=== PATIENT | male | born 1945 ===

== ENCOUNTER 2020-07-23 11:51 | Outpatient (REF) | payer OTHER, MEDICAID, SELFPAY ==
[2020-07-23 13:49] LABS: Prostate Specific Antigen < 0.05 ng/mL (<0.05-4.0)
== END 2020-07-23 11:52 | disposition home or self-care (01) ==
LOC: HO.LAB 11:51
PROVIDERS: PCP Student in an Organized Health Care Education/Training Program; Visit Provider Urology
DX: C61 Malignant neoplasm of prostate (principal); Z12.5 Encounter for screening for malignant neoplasm of prostate
CPT/HCPCS: 84153

== ENCOUNTER 2020-10-05 12:00 | Outpatient (REF) | payer OTHER, SELFPAY ==
[2020-10-05 13:36] LABS: Prostate Specific Antigen < 0.05 ng/mL (<0.05-4.0)
== END 2020-10-05 12:01 | disposition home or self-care (01) ==
LOC: HO.LAB 12:00
PROVIDERS: PCP Student in an Organized Health Care Education/Training Program; Visit Provider Urology
DX: Z85.46 Personal history of malignant neoplasm of prostate (principal); Z12.5 Encounter for screening for malignant neoplasm of prostate
CPT/HCPCS: 36415; 84153

== ENCOUNTER → 2020-10-12 13:13 | Outpatient (BNVA) | payer OTHER, SELFPAY | PROVIDERS: PCP Student in an Organized Health Care Education/Training Program; Referring Provider Student in an Organized Health Care Education/Training Program; Visit Provider Urology | DX: C61 Malignant neoplasm of prostate (principal); R97.20 Elevated prostate specific antigen [PSA] | CPT/HCPCS: 96402; 99212; J9217 ==

== ENCOUNTER → 2020-12-01 13:24 | Outpatient (BNVA) | payer OTHER, SELFPAY | PROVIDERS: PCP Student in an Organized Health Care Education/Training Program; Visit Provider Urology | DX: Z13.89 Encounter for screening for other disorder (principal) | CPT/HCPCS: Q3014 ==

== ENCOUNTER 2020-12-21 11:29 | Outpatient (REF) | payer OTHER, SELFPAY ==
[2020-12-21 11:37] VITALS: BP 148/81; PULSE 72; RESP 16; TEMP 36.4; O2SAT 98
[2020-12-21 12:05] VITALS: BMI 45.5
--- NOTE | 2020-12-21 12:54 | MHC.SHP ---
Pre-Procedural Eval Section A The patient is an INPATIENT: No Changes since office visit: No Cold of Flu in the past 2 weeks, No New Medical Problems, No Changes in Medication and No Patient answered all questions The History & Physical has been completed within 30 days and I have reviewed it.: Yes Section B Chief Complaint: prostate ca Allergies: Allergies Allergy/AdvReac Type Severity Reaction Status Date / Time No Known Allergies Allergy Unverified 12/01/20 13:28 [No Known Allergies*] Plan Diagnosis/Plan: Unchanged (PnBx) I have reviewed the history and physical and performed a pertinent physical examination on my patient. No changes have occurred unless specified.
--- NOTE | 2020-12-21 12:55 | W.PM.OPN ---
Operative Note Operative Note Date of Service: 12/21/20 Narrative: Preoperative diagnosis: Elevated PSA Postoperative diagnosis: Elevated PSA Procedure: 1. transrectal ultrasound measurement of prostate 2. transrectal ultrasound-guided pudendal nerve block 3. transrectal ultrasound-guided prostate biopsy 12 core Surgeon: Dr. Pedro Buckley Anesthetic: Local Indications for procedure: Elevated PSA Procedure: After informed consent was verified, the patient was brought into the procedure area and lay left-hand side down on the table. Patient identity confirmed. Perioperative antibiotics confirmed. Gel was placed per rectum Ultrasound probe was placed per rectum The prostate was measured in 3 dimensions Total volume equals 35 gm There were no cystic structures and no calcifications noted and the prostate was homogeneous in nature A ultrasound-guided pudendal nerve block was performed using 10 cc of 1% lidocaine. 8 cc was placed at the base and 2 cc of the apex. A 12 core biopsy was performed with 6 cores each side. Two cores were taken at the apex, mid and base. Cores were spaced between lateral and medial. He tolerated the procedure well. Was able to ambulate to bathroom after 5 minutes. Printed instructions regarding antibiotic use and common side effects such as low-grade temperature and bleeding were given.
[2020-12-21 12:57] VITALS: BP 142/75; PULSE 65; RESP 16; O2SAT 99
== END 2020-12-21 11:30 | disposition home or self-care (01) ==
LOC: HO.MS 11:29
PROVIDERS: PCP Student in an Organized Health Care Education/Training Program; Visit Provider Urology
PROC: (CPT 55700; principal; 2020-12-21 12:00)
DX: C61 Malignant neoplasm of prostate (principal); N40.1 Benign prostatic hyperplasia with lower urinary tract symptoms; R97.20 Elevated prostate specific antigen [PSA]
CPT/HCPCS: 55700; 76942; 88305; 88344

== ENCOUNTER 2020-12-29 11:13 | Outpatient (REF) | payer OTHER, SELFPAY ==
[2020-12-29 17:47] LABS: Prostate Specific Antigen < 0.05 ng/mL (<0.05-4.0)
== END 2020-12-29 11:14 | disposition home or self-care (01) ==
LOC: HO.LAB 11:13
PROVIDERS: PCP Student in an Organized Health Care Education/Training Program; Visit Provider Urology
DX: Z12.5 Encounter for screening for malignant neoplasm of prostate (principal); C61 Malignant neoplasm of prostate
CPT/HCPCS: 36415; 84153

== ENCOUNTER → 2020-12-30 10:44 | Outpatient (BNVA) | payer OTHER, SELFPAY | PROVIDERS: PCP Student in an Organized Health Care Education/Training Program; Visit Provider Urology | DX: C61 Malignant neoplasm of prostate (principal) | CPT/HCPCS: 99212 ==

== ENCOUNTER 2021-04-22 10:14 | Outpatient (REF) | payer OTHER, SELFPAY ==
[2021-04-22 11:38] LABS: Prostate Specific Antigen < 0.05 ng/mL (<0.05-4.0)
== END 2021-04-22 10:15 | disposition home or self-care (01) ==
LOC: HO.LAB 10:14
PROVIDERS: PCP Student in an Organized Health Care Education/Training Program; Visit Provider Urology
DX: Z12.5 Encounter for screening for malignant neoplasm of prostate (principal); C61 Malignant neoplasm of prostate
CPT/HCPCS: 36415; 84153

== ENCOUNTER → 2021-05-03 08:55 | Outpatient (BNVA) | payer OTHER, SELFPAY | PROVIDERS: PCP Student in an Organized Health Care Education/Training Program; Visit Provider Urology | DX: C61 Malignant neoplasm of prostate (principal); N52.9 Male erectile dysfunction, unspecified | CPT/HCPCS: 99212 ==

== ENCOUNTER 2021-09-27 11:08 | Outpatient (REF) | payer OTHER, SELFPAY ==
[2021-09-27 13:01] LABS: Prostate Specific Antigen 7.56 ng/mL (<0.05-4.0)
== END 2021-09-27 11:09 | disposition home or self-care (01) ==
LOC: HO.LAB 11:08
PROVIDERS: PCP Student in an Organized Health Care Education/Training Program; Visit Provider Urology
DX: C61 Malignant neoplasm of prostate (principal)
CPT/HCPCS: 36415; 84153

== ENCOUNTER → 2021-10-19 14:22 | Outpatient (BNVA) | payer OTHER, SELFPAY | PROVIDERS: PCP Student in an Organized Health Care Education/Training Program; Visit Provider Urology | DX: Z13.89 Encounter for screening for other disorder (principal) | CPT/HCPCS: Q3014 ==

== ENCOUNTER → 2022-10-31 11:22 | Outpatient (BNVA) | payer OTHER, SELFPAY | PROVIDERS: PCP Student in an Organized Health Care Education/Training Program; Visit Provider Urology | DX: C61 Malignant neoplasm of prostate (principal); N52.9 Male erectile dysfunction, unspecified | CPT/HCPCS: 99212 ==

== ENCOUNTER → 2023-02-06 09:59 | Outpatient (BNVA) | payer OTHER, SELFPAY | PROVIDERS: PCP Student in an Organized Health Care Education/Training Program; Visit Provider Urology | DX: C61 Malignant neoplasm of prostate (principal) | CPT/HCPCS: Q3014 ==

== ENCOUNTER → 2023-05-01 11:33 | Outpatient (BNVA) | payer OTHER, SELFPAY | PROVIDERS: PCP Student in an Organized Health Care Education/Training Program; Visit Provider Urology ==

== ENCOUNTER 2023-08-03 13:06 | Outpatient (AMB) | payer OTHER, SELFPAY ==
--- NOTE | 2023-08-03 13:14 | MHC.OFFVIS ---
Intake Intake Visit Reasons: Targeted bx consult Intake Note: Patient is Present for Follow Up H&P Urology Medication: Finasteride, Tadalafil Antibiotic Allergies: None Blood Thinners: None Allergies No Known Allergies [No Known Allergies*] Allergy (Verified 08/03/23 13:24) Medication List - Last Reconciled 08/03/23 by Pedro Buckley MD albuterol sulfate 90 mcg/actuation 1 puff inhalation Q4H PRN finasteride 5 mg PO DAILY 90 days hydrochlorothiazide 25 mg PO DAILY montelukast 10 mg PO QAM omeprazole 20 mg PO DAILY tadalafil 5 mg PO DAILY PRN 90 days HPI HPI Comments History of Present Illness Details Fabien is at a pleasant male. He is a patient of Dr. Bolton. He is seen for the following urologic conditions - prostate cancer Sami translation provided in office by qualified biomedical specialist MRI has been obtained Lesion at right base of prostate Plan for targeted biopsy Remains on finasteride Repeat PSA Refill PD 5 Prostate cancer September 2018 low volume, repeat biopsy 12/12 Negative Prostate cancer diagnosed September 2018 Initial PSA diagnosis 04 October 2018 Prostate biopsy 1 core out of 12 [place] 4 + 4 10% Imaging - bone scan negative September 2018 PSA - 10/13 11, 01/12 <0.1, 04/13 <0.1, 10/15 7.6, 10/16 14.3 Initial therapy GnRH with finasteride and bicalutamide - Last GnRH 10/12/20 Had planned on radiation therapy Repeat prostate biopsy organized November 2020 repeat prostate biopsy no prostate cancer seen Imaging - 12/14 MRI right base PI-RADS 3 lesion Erectile dysfunction Continued effective response to daily tadalafil PFSH Medical History GERD (gastroesophageal reflux disease) Prostate cancer Elevated PSA PIN (prostatic intraepithelial neoplasia) Enlarged prostate with lower urinary tract symptoms (LUTS) Surgical History Hx of prostate biopsy Social History Patient Tobacco Use Status: Tobacco use Unknown Review of Systems Const Denies chills and Denies fever(s) Card Reports no additional complaints and Denies syncope Resp Denies cough GI Denies abdominal pain and Denies heartburn Reports as per HPI and Denies change in libido Neuro Denies syncope Psych Denies change in libido Endo Denies change in libido Physical Exam Const General: cooperative, healthy appearing, comfortable and no acute distress Orientation/consciousness: patient oriented x3 HEENT Face and sinus: Yes normal facial exam Mouth: moist mucous membranes Neck Neck: Yes normal visual inspection, Yes full ROM and Yes trachea midline Chest Chest palpation & inspection: normal inspection of the chest Resp Effort & Inspection: normal respiratory effort, able to speak in complete sentences and no respiratory distress GI Inspection: Yes normal to inspection Back/Spine/Pelvis Cervical Spine: normal cervical lordosis Thoracic/Lumbar Spine: thoracic and lumbar spine normal to inspection Skin General skin exam: no rashes or lesions noted Neuro General: patient oriented x3, gait normal, tone normal and moves all extremities Extrem General: Yes normal to inspection and Yes capillary refill normal Assessment & Plan Assessment & Plan (1) Prostate cancer: Code(s): C61 - Malignant neoplasm of prostate (2) Erectile dysfunction: Code(s): N52.9 - Male erectile dysfunction, unspecified Plan Risks, benefits and alternatives to therapy were discussed. These include but are not limited to infection, bleeding, damage to local organs and tissues, need for further interventions. Anesthetic risks regarding cardiac arrhythmia, blood clots, and potential mortality were discussed. The patient understands the typical recovery time and the outpatient nature of the procedure. After consideration of these risks the patient gives full informed consent and they wish to move ahead with the procedure. Targeted prostate biopsy Orders: Orders Prostate Specific Antigen Today C61 - Malignant neoplasm of prostate, E11.69 - Type 2 diabetes mellitus with other specified complication, N52.1 - Erectile dysfunction due to diseases classified elsewhere Medications: Refilled tadalafil 5 mg PO DAILY 90 days PRN 90 tabs 1RF sexual activity N52.9 - Male erectile dysfunction, unspecified Patient Instructions: Imaging studies, laboratory and physical exam results were discussed and reviewed in detail. No major barriers to patient understanding were identified. An opportunity to ask questions regarding the treatment plan was provided. All questions were answered. The patient expressed understanding and agreement with the above treatment plan. The patient is aware they should contact our office by phone for worsening of their current condition or the appearance of new urologic symptoms. Compliance is encouraged with any medications and followup testing that is ordered. It is a privilege to participate in the urologic care of your patient. If you have any questions or concerns regarding treatment for the above conditions, or other urologic issues, please do not hesitate to contact me. The office telephone contact is [phone]. This note is constructed using voice recognition software. While every effort has been made to ensure accuracy patient account analyst errors may have been included. Yours sincerely, Dr Pedro Buckley MD, [facility] - Urology Providers of Expert, Compassionate Care for the Genitourinary System Coding Level of Care Code Est Pt Level 4 (35094) Diagnoses Prostate cancer C61 Erectile dysfunction N52.9
== END 2023-08-03 13:46 | disposition home or self-care (01) ==
LOC: HO.HUSH 13:06
PROVIDERS: PCP Student in an Organized Health Care Education/Training Program; Visit Provider Urology
DX: C61 Malignant neoplasm of prostate (principal); N52.9 Male erectile dysfunction, unspecified
CPT/HCPCS: 99214

== ENCOUNTER → 2023-08-03 13:06 | Outpatient (BNVA) | payer OTHER, SELFPAY | PROVIDERS: PCP Student in an Organized Health Care Education/Training Program; Visit Provider Urology | DX: C61 Malignant neoplasm of prostate (principal); N52.9 Male erectile dysfunction, unspecified | CPT/HCPCS: 99212 ==

== ENCOUNTER 2023-10-15 08:20 | Day surgery (SDC) | payer OTHER, SELFPAY ==
[2023-10-11 09:40] VITALS: BMI 23.4
--- NOTE | 2023-10-12 10:50 | HO.ANESPROP2 ---
Documented by User: Maricruz Fabian NP 10/12/23 10:52 HPI - Anesthesia Eval Consult details Narrative: 78yo M for Targeted Prostate Needle Biopsy Productive cough at 09/25/23 PCP visit. Mucinex and certrizine rx'd. No abx. PMFSH Active Problems Active Problems: All Active Problems (Updated 08/08/21 @ 12:03 by Demetrice Oliva RN) Erectile dysfunction (Acute) Prostate cancer (Acute) Past Medical History Medical History Asthma HTN (hypertension) GERD (gastroesophageal reflux disease) Prostate cancer Elevated PSA PIN (prostatic intraepithelial neoplasia) Enlarged prostate with lower urinary tract symptoms (LUTS) Surgical History Surgical History Hx of prostate biopsy Social History Social History Patient Tobacco Use Status: Tobacco use Unknown Are you DNR?: No Advance Directives: No Advance Directives Information Provided: Yes Recently lost weight without trying: No Nutrition Risks: No Nutritional Risk Meds Allergies Allergy/AdvReac Type Severity Reaction Status Date / Time No Known Allergies Allergy Verified 08/03/23 13:24 [No Known Allergies*] Home Medications Medication Instructions Recorded Confirmed Last Taken Type albuterol sulfate 90 mcg/actuation 1 puff inhalation Q4H PRN Wheezing 12/01/20 10/11/23 Unknown History aerosol inhaler hydrochlorothiazide 25 mg tablet 25 mg PO DAILY 12/01/20 10/11/23 Unknown History omeprazole 20 mg capsule,delayed 20 mg PO DAILY 12/01/20 10/11/23 Unknown History release montelukast 10 mg tablet 10 mg PO QAM 02/06/23 10/11/23 Unknown History fluticasone propionate 115 2 puff inhalation BID 10/11/23 10/11/23 Unknown History mcg-salmeterol 21 mcg/actuation HFA inhaler (Advair HFA) Exam Height,Weight and Vital Signs: Height 5 ft 6.5 in Weight 66.678 kg Assessment and Plan Assessment Anesthesia Assessment: Chart Reviewed Documented by User: Mazrena Garner MD 10/15/23 10:05 [facility] Active Problems Active Problems: All Active Problems (Updated 10/15/23 @ 09:19 by Marzena Garner MD) Erectile dysfunction (Acute) Prostate cancer (Acute) HTN. On ?lisinopril 5mg. Only uses sometimes. Does not think he needs. Also HCTZ Asthma/COPD Uses inhaler daily Past Medical History Medical History Asthma HTN (hypertension) GERD (gastroesophageal reflux disease) Prostate cancer Elevated PSA PIN (prostatic intraepithelial neoplasia) Enlarged prostate with lower urinary tract symptoms (LUTS) Family History Family history of problems with anesthesia: No Surgical History Surgical History Hx of prostate biopsy History of Problems with Anesthesia: No Social History Social History Patient Tobacco Use Status: Tobacco use Unknown Are you DNR?: No Advance Directives: No Advance Directives Information Provided: Yes Recently lost weight without trying: No Nutrition Risks: No Nutritional Risk Meds Allergies Allergy/AdvReac Type Severity Reaction Status Date / Time No Known Allergies Allergy Verified 08/03/23 13:24 [No Known Allergies*] Home Medications Medication Instructions Recorded Confirmed Last Taken Type albuterol sulfate 90 mcg/actuation 1 puff inhalation Q4H PRN Wheezing 12/01/20 10/11/23 Unknown History aerosol inhaler hydrochlorothiazide 25 mg tablet 25 mg PO DAILY 12/01/20 10/11/23 Unknown History omeprazole 20 mg capsule,delayed 20 mg PO DAILY 12/01/20 10/11/23 Unknown History release montelukast 10 mg tablet 10 mg PO QAM 02/06/23 10/11/23 Unknown History fluticasone propionate 115 2 puff inhalation BID 10/11/23 10/11/23 Unknown History mcg-salmeterol 21 mcg/actuation HFA inhaler (Advair HFA) Exam Height,Weight and Vital Signs: Height 5 ft 6.5 in Weight 66.678 kg Vital Signs Temp Pulse Resp BP Pulse Ox O2 Del Method 10/15/23 08:28 97 F 70 20 152/72 H 97 Room Air Narrative Narrative: 12 lead EKG 10/15/23: SB 52 with PACs with aberrant conduction Airway Mallampati Class: II TM Dist: >3cm Neck ROM: Full Denture: Upper and Lower Loose/Missing/Broken Teeth: Yes (Full Dentures) Heart: Irregular Lungs: CTAB Other: Will check EKG Assessment and Plan Assessment Anesthesia Assessment: Anesthesia Plan Discussed Final Anesthetic Review Family History of Problems with Anesthesia: No History of Problems with Anesthesia: No NPO: Yes ASA Class: III Final Preanesthetic Review: No Changes in Pt Med Stat, Meds/Allgs Chart Reviewed, Consent Obtained/Reviewed and Anes Risks/Benef Reviewed Patient Risk: Intermediate Procedure Risk: Low Assessment/Block/Sedation in SS: Assess/Block/Sedation-SS Anesthetic Plan Anesthetic Plan: GA and TIVA Disposition: Standard PACU
[2023-10-15 08:28] VITALS: BP 152/72; PULSE 70; RESP 20; TEMP 36.1; O2SAT 97
[2023-10-15 08:30] VITALS: BMI 23.5
[2023-10-15] MEDS: Lactated Ringers 1,000 ML 100 ML IVCONT (08:40)
[2023-10-15] MEDS: levoFLOXacin 500 MG TABLET PO (08:40)
--- NOTE | 2023-10-15 09:43 | ECG_ITS ---
Test Reason : PRE OP Blood Pressure : / mmHG Vent. Rate : 052 BPM Atrial Rate : 052 BPM P-R Int : 132 ms QRS Dur : 088 ms QT Int : 400 ms P-R-T Axes : 000 014 043 degrees QTc Int : 372 ms Sinus bradycardia with Premature atrial complexes with Aberrant conduction Otherwise normal ECG When compared to the previous EKG of sinus bradycardia present Referred By: Marzena Garner Electronically Signed By:Gómez Garnica
--- NOTE | 2023-10-15 10:20 | MHC.SHP ---
Pre-Procedural Eval Section A Date of Service: 10/15/23 The patient is an INPATIENT: No The History & Physical has been completed within 30 days and I have reviewed it.: No Section B Chief Complaint: Malignant neoplasm of prostate Relevant Family History (Specify if Yes): No Relevant Social History: None Present Medications: see Short Stay Collaborative assessment Medical History: No relevant PMH History of Previous Operations: Relevant previous surgery/procedure and date(s) Allergies: Allergies Allergy/AdvReac Type Severity Reaction Status Date / Time No Known Allergies Allergy Verified 08/03/23 13:24 [No Known Allergies*] Review of Systems Sugical H&P ROS: Negative: Constitution, Cardiovascular, Respiratory, Neurological, Psychiatric, Hem-Onc, Allergic/Immunologic, Gastrointestinal, Genitourinary, Musculoskeletal, Integumentary, Endocrine and Eyes/Ears/Nose/Throat Exam Surgical H&P Exam: Normal: HEENT, Normal: Heart, Normal: Lungs, Normal: Extremities, Normal: Abdomen, Normal: Skin and Normal: Neurological Plan Diagnosis/Plan: Unchanged (targeted prostate biopsy) I have reviewed the history and physical and performed a pertinent physical examination on my patient. No changes have occurred unless specified. Time Spent With Patient Time: Total time managing care of this patient today ____ minutes.
--- NOTE | 2023-10-15 10:34 | PC.NURSE ---
dr lackey at bedside with interpretor pt refusing to take dentures off eveyone aware
--- NOTE | 2023-10-15 11:19 | P.OP_ITS ---
Operative Note Operative Note Date of Service: 10/15/23 Narrative: Preoperative diagnosis: Prostate Cancer Postoperative diagnosis: Prostate Cancer Procedure: 1. transrectal ultrasound-guided pudendal nerve block 2. MRI-US fusion image registration performed 3. transperineal ultrasound-guided prostate biopsy 18 core including targets Surgeon: Dr. Pedro Buckley Anesthetic: Sedation plus local Indications for procedure: Prostate Cancer Procedure: After informed consent was verified, the patient was brought into the procedure area. Patient identity confirmed. Perioperative antibiotics confirmed. Safety pause time out performed. Anesthesia performed per protocol. Scrotum taped out of operative area. Iodine prep used. Perineal injection of local anesthetic. Digital guided prostate pudendal nerve block performed with 10 cc of 1% lidocaine. 5cc each side. Combination 10cc iodine with 50cc gel was mixed and placed in the rectum. Ultrasound probe was placed per rectum. Ultrasound probe stabilized on a prostate stepper with attached grid. [employer] software and hardware platform used for US image acquisition, US 3D model creation and MRI-US fusion image overlay. Ultrasound placement was made with external grid calibration for height and prostate diameter in both the transverse and longitudinal planes. Grid A-C covering right prostate and c-F covering left prostate. Numbers 1.0-2.5 covering posterior prostate and 2.5-4.0 covering anterior prostate. Once grid calibration was confirmed prostate ultrasound data acquisition was performed in the transverse fashion. The US images were registered to create model boundaries. A three dimensional ultrasound model was created using [employer] software. The model was reviewed against acquired US images. The planned needle targeting, based on prior acquisition of MRI imaging, was overlaid on the ultrasound images and targets confirmed through ultrasound r eview. Adjustments were then made between real time and projected model targeting locations. Based on pre-planning evaluation 18 targets had been identified. These included 3 targets of the PI-RADS 4 prostate right base PZ identified lesion/s. He tolerated the procedure well. Was transferred to stable condition in the PACU. Printed instructions regarding antibiotic use and common side effects such as low-grade temperature, potential infection and bleeding were given Pathology: 18 core prostate biopsy CPT 01508 Modifier 22 for complexity of procedure execution (Perineal prostate biopsy) CPT 35151 US/MRI target fusion and manipulation in realtime
[2023-10-15 11:27] VITALS: BP 111/67; PULSE 70; RESP 19; TEMP 36.4; O2SAT 94
[2023-10-15 11:30] VITALS: BP 105/60; PULSE 73; RESP 19; O2SAT 95
[2023-10-15 11:35] VITALS: BP 136/71; PULSE 64; RESP 16; O2SAT 97
[2023-10-15 11:40] VITALS: BP 144/71; PULSE 71; RESP 17; O2SAT 97
[2023-10-15 11:55] VITALS: BP 120/68; PULSE 64; RESP 16; TEMP 36.3; O2SAT 97
== END 2023-10-15 12:59 | disposition home or self-care (01) ==
PROVIDERS: PCP Student in an Organized Health Care Education/Training Program; Visit Provider Urology
PROC: (CPT 55700; principal; 2023-10-15 09:50)
DX: C61 Malignant neoplasm of prostate (principal); I10 Essential (primary) hypertension; K21.9 Gastro-esophageal reflux disease without esophagitis
CPT/HCPCS: 55706; 88305; 88344; 93005; J2704; J3010

== ENCOUNTER → 2023-10-15 08:20 | Outpatient (BNV) | payer OTHER, SELFPAY | PROVIDERS: PCP Student in an Organized Health Care Education/Training Program; Visit Provider Urology | DX: C61 Malignant neoplasm of prostate (principal) | CPT/HCPCS: 55700; 76942 ==

== ENCOUNTER → 2023-10-15 09:43 | Outpatient (BNV) | payer OTHER, SELFPAY | PROVIDERS: PCP Student in an Organized Health Care Education/Training Program; Visit Provider Internal Medicine Cardiovascular Disease | DX: I49.1 Atrial premature depolarization (principal) | CPT/HCPCS: 93010 ==

== ENCOUNTER 2023-10-30 08:43 | Outpatient (AMB) | payer OTHER, SELFPAY ==
--- NOTE | 2023-10-30 08:43 | MHC.OFFVIS ---
Intake Intake Visit Reasons: Prostate bx results Intake Note: Patient is Present for Telephone Follow Up Prostate Biopsy Biopsy: 10/15/2023 Urology Medication: Finasteride, Tadalafil Antibiotic Allergies: None Blood Thinners: None Catia Designer Required: Yes Catia Designer Language: Brazilian Accompanied by: Self / Same As Patient Allergies No Known Allergies [No Known Allergies*] Allergy (Verified 10/30/23 08:44) Medication List - Last Reconciled 10/30/23 by Pedro Buckley MD albuterol sulfate 90 mcg/actuation 1 puff inhalation Q4H PRN finasteride 5 mg PO DAILY 90 days fluticasone propion-salmeterol 115-21 mcg/actuation (Advair HFA) 2 puffs inhalation BID hydrochlorothiazide 25 mg PO DAILY montelukast 10 mg PO QAM omeprazole 20 mg PO DAILY tadalafil 5 mg PO DAILY PRN 90 days HPI HPI Comments History of Present Illness Details Fabien is at a pleasant male. He is a patient of Dr. Boltno. He is seen for the following urologic conditions - prostate cancer Brazilian translation provided by qualified medical records library professor Telemedicine Evaluation 15 min Consultation [employer] Video attempted Follow-up from target directed biopsy Multiple core positive [place] 9 disease Recommend external beam radiation with 18 months hormones plus abireterone and bicalutimide Prostate cancer September 2018 low volume, repeat biopsy 12/12 Negative Prostate cancer diagnosed September 2018 Initial PSA diagnosis 04 October 2023 MRI fusion biopsy PSA 14.3 Histologic type: Adenocarcinoma, acinar type Histologic grade: Los score: 9 (5+4) (C 2.0, C 1.5) 9 (4+5) (d 2.0, b 3.0, b 2.0, B 2.0) 8 (4+4) (C 3.0) % of pattern 4: 42% % of pattern 5: 56% Grade group: 5 and 4 Number cores positive: 7 Total number of cores: 18 % of tissue involved: 12% Periprostatic fat inv.: Seminal vesicle inv: Perineural inv. Lymphovascular invasion: Not identified September 2018 Prostate biopsy 1 core out of 12 [place] 4 + 4 10% Imaging - bone scan negative September 2018 PSA - 10/13 11, 01/12 <0.1, 04/13 <0.1, 10/15 7.6, 10/16 14.3 Initial therapy GnRH with finasteride and bicalutamide - Last GnRH 10/12/20 Had planned on radiation therapy Repeat prostate biopsy organized November 2020 repeat prostate biopsy no prostate cancer seen Imaging - 12/14 MRI right base PI-RADS 3 lesion Erectile dysfunction Continued effective response to daily tadalafil PFSH Medical History Asthma HTN (hypertension) GERD (gastroesophageal reflux disease) Prostate cancer Elevated PSA PIN (prostatic intraepithelial neoplasia) Enlarged prostate with lower urinary tract symptoms (LUTS) Surgical History (Updated 10/30/23 @ 08:46 by SARAH Pepper) Hx of prostate biopsy Social History Patient Tobacco Use Status: Tobacco use Unknown Review of Systems Const All systems reviewed & are unremarkable except as noted in HPI and below Reports no additional complaints Resp Reports no additional complaints GI Reports no additional complaints Reports as per HPI Musc Reports no additional complaints Physical Exam Telemedicine evaluation Appropriate responses Regular breathing rate and rhythm HEENT Head: Yes normal to inspection Ears: hearing grossly normal bilaterally Eyes General: appearance normal, both eyes and all related structures Neck Neck: Yes normal visual inspection Chest Chest palpation & inspection: normal inspection of the chest Resp Effort & Inspection: normal respiratory effort and able to speak in complete sentences Assessment & Plan Assessment & Plan (1) Prostate cancer: Code(s): C61 - Malignant neoplasm of prostate (2) Erectile dysfunction: Code(s): N52.9 - Male erectile dysfunction, unspecified Plan [facility] 2 weeks nursing Radiation oncology referral PET-CT scan Orders: Orders PET CT fusion skull to thigh Today C61 - Malignant neoplasm of prostate Referrals Radiation Oncology Referral C61 - Malignant neoplasm of prostate Medications: Refilled tadalafil 5 mg PO DAILY PRN 90 tabs 1RF sexual activity 90 days N52.9 - Male erectile dysfunction, unspecified Patient Instructions: Imaging studies, laboratory and physical exam results were discussed and reviewed in detail. No major barriers to patient understanding were identified. An opportunity to ask questions regarding the treatment plan was provided. All questions were answered. The patient expressed understanding and agreement with the above treatment plan. The patient is aware they should contact our office by phone for worsening of their current condition or the appearance of new urologic symptoms. Compliance is encouraged with any medications and followup testing that is ordered. It is a privilege to participate in the urologic care of your patient. If you have any questions or concerns regarding treatment for the above conditions, or other urologic issues, please do not hesitate to contact me. The office telephone contact is [phone]. This note is constructed using voice recognition software. While every effort has been made to ensure accuracy spice grinder errors may have been included. Yours sincerely, Dr Pedro Buckley MD, [facility] - Urology Providers of Expert, Compassionate Care for the Genitourinary System Telehealth Telehealth Location of provider rendering services: practice address Location of patient: address on file Patient Identification confirmed using: Name, : Yes Telehealth method: video Patient verbally consented to treatment: Yes Patient verbally consented to billing insurance company: Yes Patient informed of any privacy concerns related to visit: Yes Coding Level of Care Code Tele Est Pt Level 4 (27318) Diagnoses Prostate cancer C61 Erectile dysfunction N52.9
== END 2023-10-30 09:21 | disposition home or self-care (01) ==
LOC: HO.HUSH 08:43
PROVIDERS: PCP Student in an Organized Health Care Education/Training Program; Visit Provider Urology
DX: C61 Malignant neoplasm of prostate (principal); N52.9 Male erectile dysfunction, unspecified
CPT/HCPCS: 99214

== ENCOUNTER → 2023-10-30 08:43 | Outpatient (BNVA) | payer OTHER, SELFPAY | PROVIDERS: PCP Student in an Organized Health Care Education/Training Program; Visit Provider Urology ==

== ENCOUNTER 2023-11-27 09:47 | Outpatient (REF) | payer OTHER, SELFPAY ==
[2023-11-27 11:59] LABS: Prostate Specific Antigen 28.21 ng/mL (<0.05-4.0)
== END 2023-11-27 09:48 | disposition home or self-care (01) ==
LOC: HO.LAB 09:47
PROVIDERS: PCP Student in an Organized Health Care Education/Training Program; Visit Provider Urology
DX: Z12.5 Encounter for screening for malignant neoplasm of prostate (principal); E11.69 Type 2 diabetes mellitus with other specified complication; N52.1 Erectile dysfunction due to diseases classified elsewhere; C61 Malignant neoplasm of prostate
CPT/HCPCS: 36415; 84153

== ENCOUNTER 2023-12-14 08:55 | Outpatient (AMB) | payer OTHER, SELFPAY ==
--- NOTE | 2023-12-14 08:56 | MHC.OFFVIS ---
Intake Intake Visit Reasons: PSMA/PSA/GnRH(SET) Intake Note: Patient is Present for Follow Up PSMA/PSA/Eligard Injection Urology Medication: Finasteride, Tadalafil Antibiotic Allergies:None Blood Thinners: None Confirmed Pharmacy: [facility] Allergies No Known Allergies [No Known Allergies*] Allergy (Verified 12/14/23 09:15) Medication List - Last Reconciled 12/14/23 by Perdo Buckley MD abiraterone 1,000 mg (4 x 250 mg) PO DAILY 30 days albuterol sulfate 90 mcg/actuation 1 puff inhalation Q4H PRN bicalutamide 50 mg PO DAILY 90 days finasteride 5 mg PO DAILY 90 days fluticasone propion-salmeterol 115-21 mcg/actuation (Advair HFA) 2 puffs inhalation BID hydrochlorothiazide 25 mg PO DAILY montelukast 10 mg PO QAM omeprazole 20 mg PO DAILY prednisone 5 mg PO DAILY 90 days tadalafil 5 mg PO DAILY PRN 90 days HPI HPI Comments History of Present Illness Details Fabien is at a formerly [facility] male. He is a patient of Dr. Bolton. He is seen for the following urologic conditions - prostate cancer Indonesian translation provided by qualified biomedical photographer Imaging shows that prostate cancer is no evidence of metastatic disease Suitable candidate for external beam radiation with hormonal adjunct Referral to [facility] radiation oncology Plan for GnRH with nursing Visicoil in 6 weeks' time Will administer GnRH - will need abiraterone with 5 mg prednisone and bicalutamide for 6 months The 5-year results of AbiRT were presented at [facility] 2020. In this trial patients with unfavorable intermediate risk or low volume high risk prostate cancer (Eligibility included 2+ intermediate or 1 high NCCN risk factors and no metastatic disease) were treated with 6 months of abiraterone, prednisone, and depot LHRH agonist. The 5-year bPFS was 92%.This study suggested that a short course of complete androgen blockade (abiraterone with prednisone and LHRH agonist) and definitive RT may be beneficial without long-term toxicity as compared to 2-3 years of abiraterone and ADT. The NCCN Guidelines recommend use of anti-androgen in addition to ADT. Abiraterone can be added to EBRT and 2 years of ADT in patients with qalj-jpwa-xcic prostate cancer (Has at least one of the following: ? cT3b?cT4 ? Primary [place] pattern 5 ? 2 or 3 high-risk features ? >4 cores with Grade Group 4 or 5) Prostate cancer September 2018 low volume, repeat biopsy 12/12 Negative Prostate cancer diagnosed September 2018 Initial PSA diagnosis 04 October 2023 MRI fusion biopsy PSA 14.3 Histologic type: Adenocarcinoma, acinar type Histologic grade: [place] score: 9 (5+4) (C 2.0, C 1.5) 9 (4+5) (d 2.0, b 3.0, b 2.0, B 2.0) 8 (4+4) (C 3.0) % of pattern 4: 42% % of pattern 5: 56% Grade group: 5 and 4 Number cores positive: 7 Total number of cores: 18 % of tissue involved: 12% Periprostatic fat inv.: Seminal vesicle inv: Perineural inv. Lymphovascular invasion: Not identified September 2018 Prostate biopsy 1 core out of 12 Los 4 + 4 10% Imaging - bone scan negative September 2018 PSA - 10/13 11, 01/12 <0.1, 04/13 <0.1, 10/15 7.6, 10/16 14.3, 12/15 28 Initial therapy GnRH with finasteride and bicalutamide - Last GnRH 10/12/20 Had planned on radiation therapy Repeat prostate biopsy organized November 2020 repeat prostate biopsy no prostate cancer seen Imaging - 12/14 MRI right base PI-RADS 3 lesion - 12/15 MRI prostate positive, no evidence of metastatic disease Erectile dysfunction Continued effective response to daily tadalafil PFSH Medical History Asthma HTN (hypertension) GERD (gastroesophageal reflux disease) Prostate cancer Elevated PSA PIN (prostatic intraepithelial neoplasia) Enlarged prostate with lower urinary tract symptoms (LUTS) Surgical History Hx of prostate biopsy Social History Patient Tobacco Use Status: Tobacco use Unknown Review of Systems Const Denies chills and Denies fever(s) Card Reports no additional complaints and Denies syncope Resp Denies cough GI Denies abdominal pain and Denies heartburn Reports as per HPI and Denies change in libido Neuro Denies syncope Psych Denies change in libido Endo Denies change in libido Physical Exam Const General: cooperative, healthy appearing, comfortable and no acute distress Orientation/consciousness: patient oriented x3 HEENT Face and sinus: Yes normal facial exam Mouth: moist mucous membranes Neck Neck: Yes normal visual inspection, Yes full ROM and Yes trachea midline Chest Chest palpation & inspection: normal inspection of the chest Resp Effort & Inspection: normal respiratory effort, able to speak in complete sentences and no respiratory distress GI Inspection: Yes normal to inspection Back/Spine/Pelvis Cervical Spine: normal cervical lordosis Thoracic/Lumbar Spine: thoracic and lumbar spine normal to inspection Skin General skin exam: no rashes or lesions noted Neuro General: patient oriented x3, gait normal, tone normal and moves all extremities Extrem General: Yes normal to inspection and Yes capillary refill normal Assessment & Plan Assessment & Plan (1) Erectile dysfunction: Code(s): N52.9 - Male erectile dysfunction, unspecified (2) Prostate cancer: Code(s): C61 - Malignant neoplasm of prostate Plan Two week follow-up GnRH nursing Visicoil placement in 6 weeks Initiate abiraterone with bicalutamide Orders: Referrals Radiation Oncology Referral C61 - Malignant neoplasm of prostate Medications: New bicalutamide 50 mg PO DAILY 90 tabs 0RF 90 days C61 - Malignant neoplasm of prostate prednisone 5 mg PO DAILY 90 tabs 0RF 90 days C61 - Malignant neoplasm of prostate, 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 No major barriers to patient understanding were identified. An opportunity to ask questions regarding the treatment plan was provided. All questions were answered. The patient expressed understanding and agreement with the above treatment plan. The patient is aware they should contact our office by phone for worsening of their current condition or the appearance of new urologic symptoms. Compliance is encouraged with any medications and followup testing that is ordered. It is a privilege to participate in the urologic care of your patient. If you have any questions or concerns regarding treatment for the above conditions, or other urologic issues, please do not hesitate to contact me. The office telephone contact is [phone]. This note is constructed using voice recognition software. While every effort has been made to ensure accuracy flamer sealer errors may have been included. Yours sincerely, Dr Pedro Buckley MD, [facility] - Urology Providers of Expert, Compassionate Care for the Genitourinary System Coding Level of Care Code Est Pt Level 4 (54444) Diagnoses Erectile dysfunction N52.9 Prostate cancer C61
== END 2023-12-14 09:39 | disposition home or self-care (01) ==
LOC: HO.HUSH 08:55
PROVIDERS: PCP Student in an Organized Health Care Education/Training Program; Visit Provider Urology
DX: N52.9 Male erectile dysfunction, unspecified (principal); C61 Malignant neoplasm of prostate
CPT/HCPCS: 99214

== ENCOUNTER → 2023-12-14 08:55 | Outpatient (BNVA) | payer OTHER, SELFPAY | PROVIDERS: PCP Student in an Organized Health Care Education/Training Program; Visit Provider Urology | DX: C61 Malignant neoplasm of prostate (principal); N52.1 Erectile dysfunction due to diseases classified elsewhere; Z79.52 Long term (current) use of systemic steroids; Z79.899 Other long term (current) drug therapy | CPT/HCPCS: 99212 ==

== ENCOUNTER 2023-12-19 12:44 | Outpatient (AMB) | payer OTHER, SELFPAY ==
--- NOTE | 2023-12-19 13:03 | AM.OFFVISNUR ---
Intake Intake Visit Reasons: Inj Allergies No Known Allergies [No Known Allergies*] Allergy (Verified 12/14/23 09:15) Office Meds Eligard (6 month) 45 mg (6 month) subcutaneous syringe Performing Provider: Pedro Buckley MD [facility] Administered by: Fito Segura LPN on 12/19/23 13:03 Dose Route Admin Location Dispensed Lot Number Expiration Date [facility] Hoisting Machine Operator 45 mg subcut right arm 45 mg [id number] 09/24/24 [id number] [employer]. Coding Assessment & Plan Assessment & Plan Orders: Orders AMB Leuprolide Injection - Practice Supplied Today C61 - Malignant neoplasm of prostate
== END 2023-12-19 13:22 | disposition home or self-care (01) ==
LOC: HO.HUSH 12:44
PROVIDERS: PCP Student in an Organized Health Care Education/Training Program; Visit Provider Urology
DX: C61 Malignant neoplasm of prostate (principal)

== ENCOUNTER → 2023-12-19 12:44 | Outpatient (BNVA) | payer OTHER, SELFPAY | PROVIDERS: PCP Student in an Organized Health Care Education/Training Program; Visit Provider Urology | DX: C61 Malignant neoplasm of prostate (principal) | CPT/HCPCS: 96402; J9217 ==

== ENCOUNTER 2024-05-13 10:23 | Outpatient (AMB) | payer OTHER, SELFPAY ==
--- NOTE | 2024-05-13 11:02 | MHC.OFFVIS ---
Intake Visit Reasons: Space Oar/Visicoil placement FU Allergies No Known Allergies [No Known Allergies*] Allergy (Verified 12/14/23 09:15) PFSH Medical History Asthma HTN (hypertension) GERD (gastroesophageal reflux disease) Prostate cancer Elevated PSA PIN (prostatic intraepithelial neoplasia) Enlarged prostate with lower urinary tract symptoms (LUTS) Surgical History Hx of prostate biopsy Social History Patient Tobacco Use Status: Tobacco use Unknown Coding
--- NOTE | 2024-05-13 11:09 | MHC.OFFVIS ---
Intake Visit Reasons: Follow up- No Space Oar with Dr Ricks Intake Note: Patient is present for Follow up- Urology Med: Tadalafil, Abiraterone, Bicalutamide,, Finasteride Antibiotic Allergy: None Blood Thinner: None Patient was due for Space oar with Dr Ricks Surgery was not performed [employer] Forms Required: Yes [employer] Forms Language: Brazilian Accompanied by: Self / Same As Patient Allergies No Known Allergies [No Known Allergies*] Allergy (Verified 05/13/24 11:10) HPI Comments Details: Fabien is at a [facility] male. He is a patient of Dr. Bolton. He is seen for the following urologic conditions - prostate cancer Brazilian translation provided by qualified medical anthropologist Patient decided against getting radiation Do not have recent PSA Discussed using GnRH his primary therapy He would prefer to do this GnRH in 2 weeks with 4 month follow-up on labs Prostate cancer September 2018 low volume, repeat biopsy 12/12 Negative Prostate cancer diagnosed September 2018 Initial PSA diagnosis 04 October 2023 MRI fusion biopsy PSA 14.3 Histologic type: Adenocarcinoma, acinar type Histologic grade: [place] score: 9 (5+4) (C 2.0, C 1.5) 9 (4+5) (d 2.0, b 3.0, b 2.0, B 2.0) 8 (4+4) (C 3.0) % of pattern 4: 42% % of pattern 5: 56% Grade group: 5 and 4 Number cores positive: 7 Total number of cores: 18 % of tissue involved: 12% Periprostatic fat inv.: Seminal vesicle inv: Perineural inv. Lymphovascular invasion: Not identified September 2018 Prostate biopsy 1 core out of 12 Los 4 + 4 10% Imaging - bone scan negative September 2018 PSA - 10/13 11, 01/12 <0.1, 04/13 <0.1, 10/15 7.6, 10/16 14.3, 12/15 28 Initial therapy GnRH with finasteride and bicalutamide - Last GnRH 10/12/20 Had planned on radiation therapy Repeat prostate biopsy organized November 2020 repeat prostate biopsy no prostate cancer seen Imaging - 12/14 MRI right base PI-RADS 3 lesion - 12/15 MRI prostate positive, no evidence of metastatic disease Erectile dysfunction Continued effective response to daily tadalafil [facility] Medical History Asthma HTN (hypertension) GERD (gastroesophageal reflux disease) Prostate cancer Elevated PSA PIN (prostatic intraepithelial neoplasia) Enlarged prostate with lower urinary tract symptoms (LUTS) Surgical History Hx of prostate biopsy Social History Patient Tobacco Use Status: Tobacco use Unknown Review of Systems Const Denies chills and Denies fever(s) Card Reports no additional complaints and Denies syncope Resp Denies cough GI Denies abdominal pain and Denies heartburn Reports as per HPI and Denies change in libido Neuro Denies syncope Psych Denies change in libido Endo Denies change in libido Physical Exam Const General: cooperative, healthy appearing, comfortable and no acute distress Orientation/consciousness: patient oriented x3 HEENT Face and sinus: Yes normal facial exam Mouth: moist mucous membranes Neck Neck: Yes normal visual inspection, Yes full ROM and Yes trachea midline Chest Chest palpation & inspection: normal inspection of the chest Resp Effort & Inspection: normal respiratory effort, able to speak in complete sentences and no respiratory distress GI Inspection: Yes normal to inspection Back/Spine/Pelvis Cervical Spine: normal cervical lordosis Thoracic/Lumbar Spine: thoracic and lumbar spine normal to inspection Skin General skin exam: no rashes or lesions noted Neuro General: patient oriented x3, gait normal, tone normal and moves all extremities Extrem General: Yes normal to inspection and Yes capillary refill normal Assessment & Plan Assessment & Plan (1) Prostate cancer: Code(s): C61 - Malignant neoplasm of prostate Category: Medical (2) Erectile dysfunction: Code(s): N52.9 - Male erectile dysfunction, unspecified Category: Medical Plan Intermittent hormone therapy management Orders: Orders Prostate Specific Antigen 4 Months C61 - Malignant neoplasm of prostate Testosterone, Total 4 Months C61 - Malignant neoplasm of prostate Patient Instructions: Imaging studies, laboratory and physical exam results were discussed and reviewed in detail. No major barriers to patient understanding were identified. An opportunity to ask questions regarding the treatment plan was provided. All questions were answered. The patient expressed understanding and agreement with the above treatment plan. The patient is aware they should contact our office by phone for worsening of their current condition or the appearance of new urologic symptoms. Compliance is encouraged with any medications and followup testing that is ordered. It is a privilege to participate in the urologic care of your patient. If you have any questions or concerns regarding treatment for the above conditions, or other urologic issues, please do not hesitate to contact me. The office telephone contact is [phone]. This note is constructed using voice recognition software. While every effort has been made to ensure accuracy military cook errors may have been included. Yours sincerely, Dr Pedro Buckley MD, [facility] - Urology Providers of Expert, Compassionate Care for the Genitourinary System Coding Level of Care Code Est Pt Level 4 (37072) Diagnoses Prostate cancer C61 Erectile dysfunction N52.9
== END 2024-05-13 11:51 | disposition home or self-care (01) ==
PROVIDERS: PCP Student in an Organized Health Care Education/Training Program; Visit Provider Urology
DX: C61 Malignant neoplasm of prostate (principal); N52.9 Male erectile dysfunction, unspecified
CPT/HCPCS: 99214

== ENCOUNTER → 2024-05-13 10:23 | Outpatient (BNVA) | payer OTHER, SELFPAY | PROVIDERS: PCP Student in an Organized Health Care Education/Training Program; Visit Provider Urology | DX: C61 Malignant neoplasm of prostate (principal); N52.9 Male erectile dysfunction, unspecified | CPT/HCPCS: 99212 ==

== ENCOUNTER 2024-09-02 08:54 | Outpatient (REF) | payer OTHER, SELFPAY ==
[2024-09-02 14:48] LABS: Alanine Aminotransferase 22 U/L (0-40); Albumin Level 3.9 g/dL (3.5-5.0); Alkaline Phosphatase 81 U/L (39-117); Anion Gap 11 (12-20); Aspartate Amino Transferase 36 U/L (5-37); Bilirubin Direct 0.2 mg/dL (0.0-0.5); Bilirubin Total 0.7 mg/dL (0.0-1.0); Blood Urea Nitrogen 15 mg/dL (9-16); Calcium 9.2 mg/dL (8.4-10.2); Carbon Dioxide 31 mmol/L (22-29); Chloride 105 mmol/L (96-108); Cholesterol 203 mg/dL (<200); Estimated Glomerular Filt Rate > 60; Glucose Random 85 mg/dL (60-115); HDL Cholesterol 44 mg/dL (>40); LDL Cholesterol Calculated 128 mg/dL (<100); Potassium 4.2 mmol/L (3.3-5.1); Sodium 143 mmol/L (135-145); Total Protein 7.4 g/dL (6.5-8.0); Triglycerides 155 mg/dL (<150)
== END 2024-09-02 08:55 | disposition home or self-care (01) ==
LOC: HO.CHCLDS 08:54
PROVIDERS: Visit Provider Student in an Organized Health Care Education/Training Program
DX: I10 Essential (primary) hypertension (principal)
CPT/HCPCS: 36415; 80048; 80061; 80076

== ENCOUNTER 2024-10-16 17:48 | Outpatient (REF) | payer OTHER, SELFPAY ==
[2024-10-16 19:37] LABS: Influenza A PCR NEGATIVE (Negative); Influenza B PCR NEGATIVE (Negative); Resp Syncy Virus RNA Qual PCR NEGATIVE (Negative); SARS COV2 PCR INHOUSE NEGATIVE (Negative)
== END 2024-10-16 17:49 | disposition home or self-care (01) ==
LOC: HO.HHCLNP 17:48
PROVIDERS: Visit Provider Internal Medicine
DX: B30.9 Viral conjunctivitis, unspecified (principal)
CPT/HCPCS: 0241U

== ENCOUNTER 2024-10-30 09:30 | Outpatient (REF) | payer OTHER, SELFPAY ==
--- OUTSIDE RECORDS SUMMARY | 2024-10-30 09:33 | XMS_ITS | Encounter Summary ---
Author Organization [employer] Address [address] [place] [address] Care Team Providers Care Road Production General Manager Name Role Phone Es Bolton MD Primary Care Provider [phone] Encounter Details Date Type Department Care Team (Late st Contact Info) Description 10/20/2024 Orders Only [facility] [address] [place] [address] Marilyn Farr MD [address] [place] [address] Pulse irregularity (Primary Dx) Social History Tobacco Use Types Packs/Day Years Used Date Smoking Tobacco: Never Passive Smoke Exposure: Never Smokeless Tobacco: Never Alcohol Use Standard Drinks/Week Comments Defer 0 (1 standard drink = 0.6 oz pur e alcohol) Depression Answer Date Recorded Patient Health Questionnaire-9 Score 4 08/28/2024 Patient Health Questionnaire-9 Score 4 08/28/2024 Last PHQ-9: Questionnaire Data Not on file 1 10/29/2023 Housing Stability Answer Date Recorded What is your housing situation today? I have danny franco 08/28/[address] you li ve. Do you have problems with any of the following? None of the above 08/28/2024 Food Insecurity Answer Date Recorded Within the past 12 months, y ou worried that your food would run out before you got money to buy more: Never True 08/28/2024 Within the past 12 months,th e food you bought just didn't last and you didn't have enough money to get more: Never True 01/2024 Transportation Answer Date Recorded In the past 12 months, has l ack of transportation kept you from medical appts, meetings, work or from getting things needed for daily living? No 08/28/2024 Utilities Answer Date Recorded In the past 12 months, has t he electric, gas, oil or water company threatened to shut off services in your home? No 08/28/2024 Depression Answer Date Recorded Patient Health Questionnaire-2 Score 1 08/28/2024 Internet Access Answer Date Recorded Internet Access Q1 No 08/28/2024 Internet Access Q2 I do not want or need it 01/2024 Sex and Gender Information Value Date Recorded Sex Assigned at Male 07/24/2022 10:32 AM EDT Legal Sex Male 10:32 AM EDT Gender Identity Male 07/24/2022 10:32 AM EDT Sexual Orientation Choose not to disclose 2021 10:32 AM EDT documented as of this encounter Plan of Treatment Upcoming Encounters Date Type Department Care Team (Late st Contact Info) Description 01/05/2025 8:45 AM EDT Telemedicine [facility] [address] [place] [address] Es Bolton MD [address] [place] [address] documented as of this encounter Procedures Procedure Name Priority Date/Time Associated Diagnosis Comments ECG 12-LEAD Routine 10/20/2024 1:03 PM EST Pulse irregularity documented in this encounter Results * ECG 12 lead (10/20/2024 1:03 PM EST) Narrative Marilyn Farr MD - 10/20/2024 1:03 PM EST Sinus arrhythmia at 76 bpm us Marilyn Farr MD ECG ORDERABLES Edited Result - Final documented in this encounter Visit Diagnoses Diagnosis Pulse irregularity- Primary documented in this encounter Additional Health Concerns Assessment Noted Time PHQ-9 Depression Total Score: 4 08/28/20 24 10:12 AM EST documented as of this encounter Care Teams Road Production General Manager Relationship Specialty Start Date End Date Es Bolton MD [address] [place] [id number] PCP - General Family Medicine 06/06/17 documented as of this encounter
--- OUTSIDE RECORDS SUMMARY | 2024-10-30 09:33 | XMS_ITS | Encounter Summary ---
Author Organization [employer] Address [address] [place] [address] Care Team Providers Care Speech Instructor Name Role Phone Es Boltno MD Primary Care Provider [phone] Reason for Visit * Reason Onset Date Comments Walk-In 10/16/2024 Encounter Details Date Type Department Care Team ([facility] st Contact Info) Description 10/16/2024 Telephone [facility] [address] [place], [place] [phone] Es Bolton MD [address] [place] [address] Walk-In Social History Tobacco Use Types Packs/Day Years [...] AM EDT documented as of this encounter Miscellaneous Notes * Telephone Encounter - Wendy Land - 10/16/2024 10:[address], and on and off fevers x 3 days documented in this encounter Plan of Treatment Upcoming Encounters Date Type Department Care Team (Late st Contact Info) Description 01/05/2025 8:45 AM EDT Telemedicine [facility] [address] [place] [address] Es Bolton MD [address] [place] [address] documented as of this encounter Visit Diagnoses Not on filedocumented in this encounter Additional Health Concerns Assessment Noted Time PHQ-9 Depression Total Score: 4 08/28/20 24 10:12 AM EST documented as of this encounter Care Teams Speech Instructor Relationship Specialty Start Date End Date Es Bolton MD [address] [place] [id number] PCP - General Family Medicine 06/06/17 documented as of this encounter
--- OUTSIDE RECORDS SUMMARY | 2024-10-30 09:33 | XMS_ITS | Encounter Summary ---
Author Organization [employer] Address [address] [facility] [address] [place] [address] Care Team Providers Care Management Developer Name Role Phone Es Bolton MD Primary Care Provider [phone] Encounter Details Date Type Department Care Team (Latest Contact Info) Description 10/16/2024 2:00 PM EST Office Visit [facility] [address] [place], [place] [id number] Marilyn Farr MD [address] [place] [address] COPD with acute exacerbation (CMS/HCC) (Primary Dx); Viral conjunctivitis of both eyes; Pulse irregularity Social History Tobacco Use Types Packs/Day Years [...] is your housing situation today? I have dannysierra franco 08/28/[address] you [...] AM EDT documented as of this encounter Last Filed Vital Signs Vital Sign Reading Time Taken Comments Blood Pressure 140/74 10/16/2024 2:21 PM EST Pulse 76 10/16/2024 2:21 PM EST Temperature 36.6 ??C (97.8 ??F) 10/16/2024 2:21 PM ES T Respiratory Rate 18 10/16/2024 2:21 PM EST Oxygen Saturation 98% 10/16/2024 2:21 PM EST Inhaled Oxygen Concentration - - Weight 67.1 kg (148 lb) 10/16/2024 2:21 PM EST Height 167.6 cm (5' 6 ) 10/16/2024 2:21 PM EST Body Mass Index 23.89 10/16/2024 2:21 PM EST documented in this encounter Progress Notes * Marilyn Farr MD - 10/16/2024 2:00 PM EST Subjective Patient ID: Fabien Stephens is a 79 y.o. male who presents for cough x 3 days. HPI Fabien was well until 3 days ago when he started having a productive cough. Says the phlegm is clear and does not have any SOB or RICH. Reports subjective mild fever but not chills. Had some bodyaches at first but they have resolved. Started getting a sore throat yesterday that was better with someOTC medication. He has asthma and reports using his pumps as directed. Not taking his BP medicationregularly, though. No sick contacts. Review of Systems Constitutional: Positive for fever. Negative for activity change, appetite change and chills. HENT: Positive for sore throat. Negative for congestion, ear pain, postnasal drip and rhinorrhea. Respiratory: Positive for cough. Negative for chest tightness and shortness of breath. Cardiovascular: Negative for chest pain, palpitations and leg swelling. Gastrointestinal: Negative for abdominal pain, nausea and vomiting. Musculoskeletal: Positive for myalgias. Neurological: Negative for headaches. Objective BP 140/74 (BP Location: Right arm, Patient Position: Sitting, BP Cuff Size: Adult) Pulse 76 Temp 97.8 ??F (36.6 ??C) (Oral) Resp 18 Ht 5' 6 (1.676 m) Wt 148 lb (67.1 kg) SpO2 98% BMI 23.89 kg/m?? Physical Exam Constitutional: Appearance: He is normal weight. He is not toxic-appearing. HENT: Head: Normocephalic and atraumatic. Nose: Nose normal. Mouth/Throat: Mouth: Mucous membranes are moist. Pharynx: No oropharyngeal exudate or posterior oropharyngeal erythema. Eyes: General: No scleral icterus. Right eye: No discharge. Left eye: No discharge. Conjunctiva/sclera: Conjunctivae normal. Pupils: Pupils are equal, round, and reactive to light. Cardiovascular: Rate and Rhythm: Normal rate. Frequent Extrasystoles are present. Chest Wall: No thrill. Pulses: Carotid pulses are 2+ on the right side and 2+ on the left side. Radial pulses are 2+ on the right side and 2+ on the left side. Heart sounds: No systolic murmur is present. No diastolic murmur is present. No S3 or S4 sounds. Pulmonary: Effort: Pulmonary effort is normal. Prolonged expiration present. No respiratory distress. Breath sounds: No stridor. Examination of the right-upper field reveals rhonchi. Examination of theleft-upper field reveals rhonchi. Examination of the right- middle field reveals rhonchi. Examination of the left-middle field reveals rhonchi. Wheezing and rhonchi present. Comments: Fair air movement Abdominal: General: Abdomen is flat. Bowel sounds are normal. Palpations: Abdomen is soft. Musculoskeletal: Right lower leg: No edema. Left lower leg: No edema. Lymphadenopathy: Cervical: No cervical adenopathy. Skin: General: Skin is warm and dry. Capillary Refill: Capillary refill takes less than 2 seconds. Neurological: General: No focal deficit present. Mental Status: He is alert. Psychiatric: Mood and Affect: Mood normal. Behavior: Behavior normal. Assessment/Plan Diagnoses and all orders for this visit: COPD with acute exacerbation ([facility]): Viral POC tests today are negative. He has a productive cough with wheezing and prior CXRs shows flattening of the diaphragm c/w COPD. Will treat with prednisone & Z-pack both for 5 days and have him RTC within 2 weeks for re-evaluation. - predniSONE (Deltasone) 20 MG tablet; Take 2 tablets (40 mg) by mouth Once per day for 5 days. - azithromycin (Zithromax Z-Uday) 250 MG tablet; Take 2 tablets once on day 1, then 1 tablet once a day for 4 days. - POCT Rapid Covid-19 BinaxNOW - POCT Rapid Strep A OSOM - SARS-CoV-2 RNA, Influenza A/B, and RSV RNA, Ql NAAT Pulse irregularity: EKG today shows sinus arrhythmia, no atrial fibrillation. - ECG 12 lead Future Appointments Date Time Provider Department Center 10/30/2024 9:30 AM Es Bolton MD [facility] documented in this encounter Plan of Treatment Upcoming Encounters Date Type Department Care Team (Late st Contact Info) Description 01/05/2025 8:45 AM EDT Telemedicine [facility] MED & [facility] [address] [facility] [place] [address] Es Bolton MD [address] [facility] [place] [address] Pending Results Name Type Priority Associated Diagnoses Date /Time ECG 12 lead ECG Routine Pulse irregularity 10/16/2024 4:10 PM EST documented as of this encounter Procedures Procedure Name Priority Date/Time Associated Diagnosis Comments POCT RAPID STREP A Routine 10/16/2024 2: 34 PM EST Viral conjunctivitis of both eyes POCT RAPID COVID ANTIGEN Routine 10/16/2024 2:33 PM EST Viral conjunctivitis of both eyes SARS COV2/INFLUENZA A/B AND RSV RNA QL NAAT Routine 10/16/2024 2:33 PM EST Viral conjunctivitis of both eyes documented in this encounter Results * POCT Rapid Strep A OSOM (10/16/2024 2:34 PM EST) Rapid Strep A Screen Negative Negative, None Detected QC Media Lot # [id number] Lot# Expiration Date [id number] Swab 10/16/2024 2:34 PM EST Marilyn Farr MD POINT OF CARE TEST ENTER/EDIT ORDERABLES Final Result * SARS-CoV-2 RNA, Influenza A/B, and RSV RNA, Ql NAAT (10/16/2024 2:33 PM EST) Pathologist [facility] Influenza A PCR NEGATIVE Negative [facility] Influenza B PCR NEGATIVE Negative [facility] Resp Syncy Virus RNA Qual PCR NEGATIVE Negative [facility] SARS COV2 PCR NEGATIVE Negative [facility] Comment:All test results mus t be correlated with clinical findings.Negative results do not preclude SARS-CoV2, influenza Avirus, influenza B virus and/or RSV infectionand should not be used as the sole basis for treatment orother patient management decisions. Negative results must becombined with clinical observations, patient history, andepidemiological information.This test has not been evaluated for monitoring treatment ofinfection.This test has been authorized by the FDA under an EmergencyUse Authorization (EUA) for use by authorized laboratories.Testing performed on the [employer] GeneXpert utilizingreal-time RT-PCR.All SARS CoV2 and positive influenza A/B results arereported to [place] DP. Swab Nasopharyngeal structure / Unknown 10/16/2024 2:33 PM EST 10/16/2024 5:49 PM EST us Marilyn Farr MD LAB MICROBIOLOGY - GENERAL OR DERABLES Final Result [facility] [address] [place] [address] [phone] * POCT Rapid Covid-19 BinaxNOW (10/16/2024 2:33 PM EST) Rapid COVID Ag Negative QC Media Lot # [id number] Lot# Expiration Date [id number] Swab 10/16/2024 2:33 PM EST us Marilyn Farr MD POINT OF CARE TEST ENTER/EDIT ORDERABLES Final Result documented in this encounter Visit Diagnoses Diagnosis COPD with acute exacerbation (CMS/HCC)- Primary Viral conjunctivitis of both eyes Pulse irregularity documented in this encounter Additional Health Concerns Assessment Noted Time PHQ-9 Depression Total Score: 4 08/28/20 24 10:12 AM EST documented as of this encounter Care Teams Management Developer Relationship Specialty Start Date End Date Es Bolton MD [address] [place] [id number] PCP - General Family Medicine 06/06/17 documented as of this encounter
--- OUTSIDE RECORDS SUMMARY | 2024-10-30 09:33 | XMS_ITS | Encounter Summary ---
Author Organization [facility] Address [address] [facility] 7t [place] [address] Care Team Providers Care Cambering Machine Operator Name Role Phone Es Bolton MD Primary Care Provider [phone] Reason for Visit * Reason Comments Sore Throat fu Encounter Details Date Type Department Care Team ([facility] st Contact Info) Description 10/30/2024 9:30 AM EST Office Visit [facility] [address] [place] [address] Es Bolton MD [address] [place] [address] Erectile dysfunction, unspecified erectile dysfunction type (Primary Dx) Social History Tobacco Use Types Packs/Day Years Used Date Smoking Tobacco: Never Passive Smoke Exposure: Never Smokeless Tobacco: Never Tobacco Cessation:Counseling Given: Not Answered Alcohol Use Standard Drinks/Week Comments Defer 0 (1 standard drink = 0.6 oz pur e alcohol) Depression Answer Date Recorded Patient Health Questionnaire-9 Score 4 08/28/2024 Patient Health Questionnaire-9 Score 4 08/28/2024 Last PHQ-9: Questionnaire Data Not on file 1 10/29/2023 Housing Stability Answer Date Recorded What is your housing situation today? I have danny salvador 08/28/[address] you li [...] Sign Reading Time Taken Comments Blood Pressure 136/82 10/30/2024 9:13 AM EST Pulse 79 10/30/2024 9:13 AM EST Temperature 36.6 ??C (97.9 ??F) 10/30/2024 9:13 AM ES T Respiratory Rate 18 10/30/2024 9:13 AM EST Oxygen Saturation 98% 10/30/2024 9:13 AM EST Inhaled Oxygen Concentration - - Weight 67.6 kg (149 lb) 10/30/2024 9:13 AM EST Height 168.9 cm (5' 6.5 ) 10/30/2024 9:13 AM EST Body Mass Index 23.69 10/30/2024 9:13 AM EST documented in this encounter Plan of Treatment Upcoming Encounters Date Type Department Care Team (Late st Contact Info) Description 01/05/2025 8:45 AM EDT Telemedicine [facility] [address] [place], [place] [phone] Es Bolton MD [address] [place] [address] Scheduled Orders Name Type Priority Associated Diagnoses Orde r Schedule Testosterone, Total, males (Adult), [place] Lab Routine Erectile dysfunction, unspecified erectile dysfunction type Expected: 10/30/2024, Expires: 10/30/2025 documented as of this encounter Visit Diagnoses Diagnosis Erectile dysfunction, unspecified erectile dysfunction type- Primary documented in this encounter Additional Health Concerns Assessment Noted Time PHQ-9 Depression Total Score: 4 08/28/20 24 10:12 AM EST documented as of this encounter Care Teams Cambering Machine Operator Relationship Specialty Start Date End Date Es Bolton MD [address] [place] [phone] PCP - General Family Medicine 06/06/17 documented as of this encounter
--- OUTSIDE RECORDS SUMMARY | 2024-10-30 09:33 | XMS_ITS | Clinical Summary ---
Author Organization [facility] ity Address [address] [place] [address] Care Team Providers Care Sap Solution Manager Consultant Name Role Phone Unavailable Primary Care Provider Unavailabl e Social History Tobacco Use Types Packs/Day Years Used Date Smoking Tobacco: Never Assessed Sex and Gender Information Value Date Recorded Sex Assigned at Not on file Gender Identity Not on file Sexual Orientation Not on file Plan of Treatment Health Maintenance Due Date Last Done Comments DTaP,Tdap,and Td Vaccines (1 - Tdap) 1965 Zoster Vaccines (1 of 2) 1996 Pneumococcal Vaccine: 65+ Ye ars (1 of 1 - PCV) 2011 RSV Immunization Patients 60 + Years Old (1 - 1-dose 75+ series) 2021 Cholesterol Screening (Lipid Panel) 08/27/2022 Depression Screening 08/27/2022 Falls Risk Assessment 08/27/2022 Hepatitis C Screening 08/27/2022 Social Influencers of Health Screening 08/27/2022 COVID-19 Vaccine ( - 2023-2 5 season) 2024 Influenza Vaccine (#1) 2024 HIB Vaccines Aged Out No longer eligi ble based on patient's age to complete this topic HPV Vaccines Aged Out No longer eligi ble based on patient's age to complete this topic Hepatitis A Vaccines Aged Out No long er eligible based on patient's age to complete this topic Hepatitis B Vaccines Aged Out No long er eligible based on patient's age to complete this topic IPV Vaccines Aged Out No longer eligi ble based on patient's age to complete this topic MMR Vaccines Aged Out No longer eligi ble based on patient's age to complete this topic Meningococcal ACWY Vaccine Aged Out N o longer eligible based on patient's age to complete this topic RSV Immunization Patients Un anais 20 months Aged Out No longer eligible b ased on patient's age to complete this topic Varicella Vaccines Aged Out No longer eligible based on patient's age to complete this topic
--- OUTSIDE RECORDS SUMMARY | 2024-10-30 09:33 | XMS_ITS | Encounter Summary ---
Author Organization [employer] Address [address] [place] [address] Care Team Providers Care Property And Casualty Insurance Agent Name Role Phone Es Bolton MD Primary Care Provider [phone] Encounter Details Date Type Department Care Team (Latest Contact Info) Description 10/16/2024 Travel Social History Tobacco Use Types Packs/Day Years [...] Info) Description 01/05/2025 8:45 AM EDT Telemedicine [facility] [address] [place] [address] Es Bolton MD [address] [place] [address] documented as of this encounter Visit Diagnoses Not on filedocumented in this encounter Additional Health Concerns Assessment Noted Time PHQ-9 Depression Total Score: 4 08/28/20 24 10:12 AM EST documented as of this encounter Care Teams Property And Casualty Insurance Agent Relationship Specialty Start Date End Date Es Bolton MD [address] [place] [phone] PCP - General Family Medicine 06/06/17 documented as of this encounter
--- OUTSIDE RECORDS SUMMARY | 2024-10-30 09:33 | XMS_ITS | Encounter Summary ---
Author Organization [employer] Address [address] [facility] [address] [place] [address] Care Team Providers Care Staple Fiber Washer Name Role Phone Es Bolton MD Primary Care Provider [phone] Encounter Details Date Type Department Care Team (Latest Contact Info) Description 10/30/2024 Travel Social History Tobacco Use Types Packs/Day [...] Info) Description 01/05/2025 8:45 AM EDT Telemedicine [facility] [address] [place] [address] Es Bolton MD [address] [place] [address] documented as of this encounter Visit Diagnoses Not on filedocumented in this encounter Additional Health Concerns Assessment Noted Time PHQ-9 Depression Total Score: 4 08/28/20 24 10:12 AM EST documented as of this encounter Care Teams Staple Fiber Washer Relationship Specialty Start Date End Date Es Bolton MD [address] [place] [phone] PCP - General Family Medicine 06/06/17 documented as of this encounter
--- OUTSIDE RECORDS SUMMARY | 2024-10-30 09:33 | XMS_ITS | Clinical Summary ---
Author Organization [employer] Address [address] [facility] [address] [place] [address] Care Team Providers Care Charge Out Clerk Name Role Phone Es Bolton MD Primary Care Provider Allergies No known active allergies Medications bicalutamide (Casodex) 50 MG chemo tablet Take 1 tablet by mouth at bed time. Active dutasteride (Avodart) 0.5 MG capsule Take 1 capsule by mouth at bed time. Active finasteride (Proscar) 5 MG tablet Take 1 tablet by mouth at bed time. Active Fluticasone Propionate, Inhal, (Flovent Diskus) 250 MCG/ACT aerosol powder TAKE 1 PUFF BY MOUTH TWICE A DAY 03/17/20 22 Active Advair Diskus 250-50 MCG/ACT aerosol powder TAKE 1 PUFF BY ORAL ROUTE 2 TIMES EVERY DAY 04/12/20 22 Active loratadine (Claritin) 10 MG tablet Take 1 tablet by mouth at bed time. 02/13/20 18 Active tadalafil (Cialis) 5 MG tablet TAKE ONE TABLET BY MOUTH EVERY DAY NEEDED FOR SEXUAL ACTIVITY 07/20/20 22 Active albuterol (ProAir HFA) 108 (90 Base) MCG/ACT inhalerIndicatio ns:Moderate persistent asthma without complication Inhale 2 puffs every 4 (four) hours if needed for wheezing. 18 g 11 10/17/19 23 Active albuterol (2.5 MG/3ML) 0.083% nebulizer solution Take 3 mL (2.5 mg) by nebulization every 6 (six) hours if needed for wheezing. 75 mL 11 02/17/20 23 Active montelukast (Singulair) 10 MG tablet TAKE 1 TABLET BY MOUTH EVERY DAY IN THE MORNING 90 tablet 2 02/21/20 23 Active cetirizine (ZyrTEC) 10 MG tablet TAKE 1 TABLET BY MOUTH EVERY MORNING 90 tablet 2 10/18/19 24 Active omeprazole (PriLOSEC) [address] capsule Take 1 capsule (20 mg) by mouth before breakfast. Do not crush or chew.TAKE 1 CAPSULE BY MOUTH EVERY DAY BEFORE A MEAL 90 capsule 3 07/14/20 24 Active hydroCHLOROthiaz chivo (HYDRODiuril) 25 MG tabletIndication s:Benign essential hypertension Take 1 tablet (25 mg) by mouth Once per day. 90 tablet 3 07/14/20 24 025 Active azithromycin (Zithromax Z-Uday) 250 MG tabletIndication s:COPD with acute exacerbation (CMS/HCC) Take 2 tablets once on day 1, then 1 tablet once a day for 4 days. 6 tablet 10/16/19 25 Active predniSONE (Deltasone) 20 MG tabletIndication s:COPD with acute exacerbation (CMS/HCC) Take 2 tablets (40 mg) by mouth Once per day for 5 days. 10 tablet 10/16/19 25 025 Active Problems Problem Noted Date Diagnosed Date Asthma 10/17/2022 Assessment & Plan (01/29/2023 9:27 AM EDT): Expiratory wheezes, refers has been using inhaler more frequent for the past week, denied fever/chills, on exam not tachypneic, no distress, not coughing, saturating 96% at room air, will prescribe prednisone for 5 days, will add montelukast to therapy and will send for PFT. Discussed red flags to call back or visit er High grade prostatic intraepithelial neoplasia 0 10/17/2022 Abnormal colonoscopy 10/17/2022 Overview (10/17/2022): Completed 11/29/2016, due in 2021 Benign essential hypertension 06/06/2017 Gastroesophageal reflux disease without esophagi tis 06/06/2017 Encounters Date Type Department Care Team Description 10/30/2024 9:30 AM EST Office Visit [facility] [address] [place], [place] [phone] Es Bolton MD Erectile dysfunction, unspecified erectile dysfunction type (Primary Dx) 10/30/2024 Travel 10/20/2024 Orders Only [facility] [address] [place], [place] [phone] Marilyn Farr MD Pulse irregularity (Primary Dx) 10/16/2024 2:00 PM EST Office Visit [facility] [address] [place], [place] [phone] Marilyn Farr MD COPD with acute exacerbation (CMS/HCC) (Primary Dx); Viral conjunctivitis of both eyes; Pulse irregularity 10/16/2024 Travel 10/16/2024 Telephone [facility] [address] [place], [place] [phone] Nancy Gayle RN Walk-In 10/16/2024 Telephone [facility] [address] [place], [place] [phone] Es Bolton MD Walk-In 08/28/2024 10:15 AM EST Office Visit [facility] [address] [place], [place] [phone] Es Bolton MD Benign essential hypertension (Primary Dx); High grade prostatic intraepithelial neoplasia; Encounter for annual wellness visit; Encounter for immunization 08/28/2024 Travel from Last 3 Months Immunizations Name Administration Dates Next Due DT (pediatric) 03/13/2009 Influenza injectable quadrivalent preservative f ree 10/17/2022 Influenza, High Dose Seasonal, Preservative Free 08/28/2024 Pfizer Covid-19 Vaccine 12+ 08/28/2024 Pneumococcal Conjugate PCV 13 11/17/2016 Pneumococcal Polysaccharide PPSV23 11/28/2018 Tdap 03/13/2009 Social History Tobacco Use Types Packs/Day Years [...] not to disclose 2021 10:32 AM EDT Last Filed Vital Signs Vital Sign Reading [...] Mass Index 23.69 10/30/2024 9:13 AM EST Plan of Treatment Upcoming Encounters Date Type Department Care Team (Late st Contact Info) Description 01/05/2025 8:45 AM EDT Telemedicine [facility] [address] [place] [address] Es Bolton MD [address] [place] [address] Health Maintenance Due Date Last Done Comments Hepatitis C Screening 1963 Zoster Vaccines (1 of 2) 1996 RSV Patients and Patients Aged 60 years or older (1 - 1-dose 75+ series) 2021 Alcohol/Substance Use Screening 08/28/2025 08/28/2024 Depression Screening 08/28/2025 08/28/2024, 08/28/20 SDOH Screening 08/28/2025 08/28/2024 Tobacco Screening 08/28/2025 08/28/2024 DTaP/Tdap/Td Vaccines (3 - Td or Tdap) 04/04/2029 04/04/2019, 03/13/2009 Lipid Panel 09/02/2029 09/02/2024, 10/27/2021 Pneumococcal Vaccine: 50+ Years Completed 11/28/2018, 11/17/2016 COVID-19 Vaccine Completed 08/28/2024, 02/2021, 10/09/2020 Influenza Vaccine Completed 08/28/2024, , 06/18/2020, Additional history exists HIB Vaccines Aged Out No longer eligi [...] patient's age to complete this topic Meningococcal Vaccine Aged Out No glenna hair eligible based on patient's age to complete this topic RSV under 20 months Aged Out No longe r eligible based on patient's age to complete this topic Rotavirus Vaccines Aged Out No longer eligible based on patient's age to complete this topic Procedures Procedure Name Priority Date/Time Associated Diagnosis Comments ECG 12-LEAD Routine 10/20/2024 1:03 PM EST Pulse irregularity POCT RAPID STREP A Routine 10/16/2024 2: 34 PM EST Viral conjunctivitis of both eyes POCT RAPID COVID ANTIGEN Routine 10/16/2024 2:33 PM EST Viral conjunctivitis of both eyes SARS COV2/INFLUENZA A/B AND RSV RNA QL NAAT Routine 10/16/2024 2:33 PM EST Viral conjunctivitis of both eyes HEPATIC FUNCTION PANEL Routine 09/02/2024 8:56 AM EST Benign essential hypertension LIPID PANEL, STANDARD Routine 09/02/2024 8:56 AM EST Benign essential hypertension BASIC METABOLIC PANEL Routine 09/02/2024 8:56 AM EST Benign essential hypertension from Last 3 Months Results * ECG 12 lead (10/20/2024 1:03 PM EST) Marilyn Blas MD - 10/20/2024 1:03 PM EST Sinus arrhythmia at 76 bpm Marilyn Farr MD ECG ORDERABLES Edited Result - Final * POCT Rapid Strep A OSOM (10/16/2024 2:34 PM EST) [facility] Rapid Strep A Screen Negative Negative, None Detected QC Media Lot # [id number] Lot# Expiration Date [id number] Swab 10/16/2024 2:34 PM EST Marilyn Farr MD POINT OF CARE TEST ENTER/EDIT ORDERABLES Final Result * POCT Rapid Covid-19 BinaxNOW (10/16/2024 2:33 PM EST) [facility] Rapid COVID Ag Negative QC Media Lot # [id number] Lot# Expiration Date [id number] Swab 10/16/2024 2:33 PM EST Marilyn Farr MD POINT OF CARE TEST ENTER/EDIT ORDERABLES Final Result * SARS-CoV-2 RNA, Influenza A/B, and RSV RNA, Ql NAAT (10/16/2024 2:33 PM EST) Pathologist [facility] [place] Influenza A PCR NEGATIVE Negative [facility] Influenza B PCR NEGATIVE Negative [facility] Resp Syncy Virus RNA Qual PCR NEGATIVE Negative [facility] SARS COV2 PCR NEGATIVE Negative [facility] Comment:All test results mus t be [...] use by authorized laboratories.Testing performed on the eÇift GeneXpert utilizingreal-time RT-PCR.All SARS CoV2 and positive influenza A/B results arereported to [facility]. Swab Nasopharyngeal structure / Unknown 10/16/2024 2:33 PM EST 10/16/2024 5:49 PM EST Marilyn Farr MD LAB MICROBIOLOGY - GENERAL OR DERABLES Final Result [facility] [address] [place] [phone] * Hepatic Function Panel (09/02/2024 8:56 AM EST) Pathologist [facility] Bilirubin, Total 0.7 0.0 - 1.0 mg/dL [facility] Bilirubin, Direct 0.2 0.0 - 0.5 mg/dL [facility] Aspartate Amino Transferase 36 5 - 37 U/L [facility] Alanine Aminotransferase 22 0 - 40 U/L [facility] Total Protein 7.4 6.5 - 8.0 g/dL [facility] Albumin Level 3.9 3.5 - 5.0 g/dL [facility] Alkaline Phosphatase 81 39 - 117 U/L [facility] Blood Venous blood specimen / Unknown 09/02/2024 8:56 AM EST 09/02/2024 2:12 PM EST Es Bolton MD LAB BLOOD ORDERABLES Final Resul t Performing Organization Address [facility] Co de Phone Number [facility] [address] [place] [phone] * (ABNORMAL) Lipid Panel, Standard (09/02/2024 8:56 AM EST) Triglycerides 155(H) <150 mg/dL [facility] Comment:Desirable Triglyceri de: less than 150 mg/dLBorderline High Triglyceride 150-199 mg/dLHigh Triglyceride: 200-499 mg/dLVery High Triglyceride: greater than or equal to 5OO mg/dL Cholesterol 203(H) <200 mg/dL [facility] Comment:Desirable Cholestero l: less than 200 mg/dLBorderline High Cholesterol: 200-239 mg/dLHigh Cholesterol: greater than 239 mg/dL LDL Cholesterol Calculated 128(H) <100 mg/dL [facility] Comment:Desirable LDL: less than 100 mg/dLNear Optimal/Above Optimal LDL: 110- 129 mg/dLBorderline High LDL: 130-159 mg/dLHigh LDL: 160-189 mg/dLVery High LDL: greater than or equal to 190 mg/dL HDL Cholesterol 44 >40 mg/dL [facility] Comment:Desirable HDL: great er than 40 mg/dL Note: This HDL assay may give artificially low results in patients with liver disease. Blood Venous blood specimen / Unknown 09/02/2024 8:56 AM EST 09/02/2024 2:12 PM EST Es Bolton MD LAB BLOOD ORDERABLES Final Resul t Performing Organization Address City/[facility]/ZIP Co de Phone Number [facility] [address] [place] [phone] * (ABNORMAL) Basic Metabolic Panel (09/02/2024 8:56 AM EST) Sodium 143 135 - 145 mmol/L [facility] Potassium 4.2 3.3 - 5.1 mmol/L [facility] Chloride 105 96 - 108 mmol/L [facility] Carbon Dioxide 31(H) 22 - 29 mmol/L [facility] Anion Gap 11(L) 12 - 20 [facility] Urea Nitrogen (BUN) 15 9 - 16 mg/dL [facility] Creatinine, Serum 1.12 0.5 - 1.4 mg/dL [facility] Estimated Glomerular Filt Rate >60 [facility] Comment:Chronic Kidney Disea se: Estimated GFR < 60 mL/min/1.36p8Esmdjx Kidney Disease: Estimated GFR < 15 mL/min/1.73m2 Glucose 85 60 - 115 mg/dL [facility] Calcium 9.2 8.4 - 10.2 mg/dL [facility] Blood Venous blood specimen / Unknown 09/02/2024 8:56 AM EST 09/02/2024 2:12 PM EST us Es Bolton MD LAB BLOOD ORDERABLES Final Resul t [facility] [address] [place] [phone] from Last [address] [place] [address] [place] [address] Care Teams Charge Out Clerk Relationship Specialty Start Date End Date Es Bloton MD [address] [place] [phone] PCP - General Family Medicine 06/06/17
--- OUTSIDE RECORDS SUMMARY | 2024-10-30 09:33 | XMS_ITS | Encounter Summary ---
Author Organization [employer] Address [address] [place] [address] Care Team Providers Care Mold Maker Helper Name Role Phone Es Bolton MD Primary Care Provider [phone] Reason for Visit * Reason Onset Date Comments Walk-In 10/16/2024 Encounter Details Date Type Department Care Team ([facility] st Contact Info) Description 10/16/2024 Telephone [facility] [address] [place] [address] Nancy Gayle, FELICIANO Walk-In Social History Tobacco Use Types Packs/Day [...] encounter Miscellaneous Notes * Telephone Encounter - Nancy Gayle RN - 10/16/2024 10:39 AM EST Assessment: Patient presents to Walk- In Center c/o sore throat x 3 days. Symptoms have been present for 3 days. Symptoms are constant. Patient is taking (treatment/meds) Tylenol. Recent ED visit or hospitalization: No. VS as follows (if applicable): Temp 97.8 orally HR 80 regular rate and rhythm Resp 20 none BP 146/94 left Arm; Device: Automatic Cuff Size: regular O2 sat 98 % on room air No Known Allergies Current Outpatient Medications Medication Sig Dispense Refill Advair Diskus 250-50 MCG/ACT aerosol powder TAKE 1 PUFF BY ORAL ROUTE 2 TIMES EVERY DAY albuterol (2.5 MG/3ML) 0.083% nebulizer solution Take 3 mL (2.5 mg) by nebulization every 6 (six) hours if needed for wheezing. 75 mL 11 albuterol (ProAir HFA) 108 (90 Base) MCG/ACT inhaler Inhale 2 puffs every 4 (four) hours if needed for wheezing. 18 g 11 bicalutamide (Casodex) 50 MG chemo tablet Take 1 tablet by mouth at bed time. cetirizine (ZyrTEC) 10 MG tablet TAKE 1 TABLET BY MOUTH EVERY MORNING 90 tablet 2 dutasteride (Avodart) 0.5 MG capsule Take 1 capsule by mouth at bed time. finasteride (Proscar) 5 MG tablet Take 1 tablet by mouth at bed time. Fluticasone Propionate, Inhal, (Flovent Diskus) 250 MCG/ACT aerosol powder TAKE 1 PUFF BY MOUTH TWICE A DAY hydroCHLOROthiazide (HYDRODiuril) 25 MG tablet Take 1 tablet (25 mg) by mouth Once per day. 90 tablet 3 loratadine (Claritin) 10 MG tablet Take 1 tablet by mouth at bed time. montelukast (Singulair) 10 MG tablet TAKE 1 TABLET BY MOUTH EVERY DAY IN THE MORNING 90 tablet 2 omeprazole (PriLOSEC) [address] capsule Take 1 capsule (20 mg) by mouth before breakfast. Do not crush or chew.TAKE 1 CAPSULE BY MOUTH EVERY DAY BEFORE A MEAL 90 capsule 3 tadalafil (Cialis) 5 MG tablet TAKE ONE TABLET BY MOUTH EVERY DAY NEEDED FOR SEXUAL ACTIVITY No current facility-administered medications for this visit. Patient Active Problem List Diagnosis Date Noted Asthma 10/17/2022 High grade prostatic intraepithelial neoplasia 10/17/2022 Abnormal colonoscopy 10/17/2022 Benign essential hypertension 06/06/2017 Gastroesophageal reflux disease without esophagitis 06/06/2017 Plan of care: Provider evaluation: No Tx return for same day appointment at 2:00 Advised to return at 2:00 for Provider evaluation Nancy Gayle RN documented in this encounter Plan of Treatment Upcoming Encounters Date Type Department Care Team (Late st Contact Info) Description 01/05/2025 8:45 AM EDT Telemedicine [facility] [address] [place] [address] Es Bolton MD [address] [place] [address] documented as of this encounter Visit Diagnoses Not on filedocumented in this encounter Additional Health Concerns Assessment Noted Time PHQ-9 Depression Total Score: 4 08/28/20 24 10:12 AM EST documented as of this encounter Care Teams Mold Maker Helper Relationship Specialty Start Date End Date Es Bolton MD [address] [place] [phone] PCP - General Family Medicine 06/06/17 documented as of this encounter
[2024-11-05 18:17] LABS: Testosterone, Total 45 ng/dL (250-1100)
== END 2024-10-30 09:31 | disposition home or self-care (01) ==
LOC: HO.CHCLDS 09:30
PROVIDERS: Visit Provider Student in an Organized Health Care Education/Training Program
DX: N52.9 Male erectile dysfunction, unspecified (principal)
CPT/HCPCS: 36415; 84403

== ENCOUNTER 2024-12-11 14:23 | Outpatient (REF) | payer OTHER, SELFPAY ==
[2024-12-19 14:23] LABS: Testosterone, Free 32.3 pg/mL (30.0-135.0); Testosterone, Total 294 ng/dL (250-1100)
== END 2024-12-11 14:24 | disposition home or self-care (01) ==
LOC: HO.CHCLDS 14:23
PROVIDERS: Visit Provider Student in an Organized Health Care Education/Training Program
DX: N52.9 Male erectile dysfunction, unspecified (principal)
CPT/HCPCS: 36415; 84402; 84403

== ENCOUNTER 2024-12-26 11:23 | Outpatient (AMB) | payer OTHER, SELFPAY ==
--- NOTE | 2024-12-26 11:33 | A.OFFVIS_ITS ---
Intake Visit Reasons: FU/PSA/Testo Intake Note: Patient is present for PSA/TESTO Urology Medication:TADALAFIL,FINASTERIDE,ABIRATERONE Antibiotic Allergy:NONE Blood Thinner:NONE Mushroom Spawn Maker Required: No Allergies No Known Allergies [No Known Allergies*] Allergy (Verified 12/26/24 11:35) HPI Comments Details: Fabien is at a pleasant male. He is a patient of Dr. Bolton. He is seen for the following urologic conditions - prostate cancer Moldovan translation provided by qualified emergency medical service coordinator - telephone based [phone] Patient decided against getting radiation Do not have recent PSA Patient no showed his prior GnRH Offered GNRH again today Tells me that his primary care told him that his testosterone is low and he would rather not manage his prostate cancer with injections. Testosterone measurement was 294. Clearly his prostate cancer is not adequately controlled At this point in time the therapeutic relationship between myself and the patient no longer benefits the patient. He would like to proceed with his own management. Understands the risks and benefits of progression of metastatic prostate cancer. He will be following with his primary care for ongoing prostate cancer management. Another urologist may well be better for his future management. Prostate cancer September 2018 low volume, repeat biopsy 12/12 Negative Prostate cancer diagnosed September 2018 Initial PSA diagnosis 04 October 2023 MRI fusion biopsy PSA 14.3 Histologic type: Adenocarcinoma, acinar type Histologic grade: [place] score: 9 (5+4) (C 2.0, C 1.5) 9 (4+5) (d 2.0, b 3.0, b 2.0, B 2.0) 8 (4+4) (C 3.0) % of pattern 4: 42% % of pattern 5: 56% Grade group: 5 and 4 Number cores positive: 7 Total number of cores: 18 % of tissue involved: 12% Periprostatic fat inv.: Seminal vesicle inv: Perineural inv. Lymphovascular invasion: Not identified September 2018 Prostate biopsy 1 core out of 12 Los 4 + 4 10% Imaging - bone scan negative September 2018 PSA - 10/13 11, 01/12 <0.1, 04/13 <0.1, 10/15 7.6, 10/16 14.3, 12/15 28 Initial therapy GnRH with finasteride and bicalutamide - Last GnRH 10/12/20 Had planned on radiation therapy Repeat prostate biopsy organized November 2020 repeat prostate biopsy no prostate cancer seen Imaging - 12/14 MRI right base PI-RADS 3 lesion - 12/15 MRI prostate positive, no evidence of metastatic disease Erectile dysfunction Continued effective response to daily tadalafil PFSH Medical History Asthma HTN (hypertension) GERD (gastroesophageal reflux disease) Prostate cancer Elevated PSA PIN (prostatic intraepithelial neoplasia) Enlarged prostate with lower urinary tract symptoms (LUTS) Surgical History Hx of prostate biopsy Social History Patient Tobacco Use Status: Tobacco use Unknown Review of Systems Const Denies chills and Denies fever(s) Card Reports no additional complaints and Denies syncope Resp Denies cough GI Denies abdominal pain and Denies heartburn Reports as per HPI and Denies change in libido Neuro Denies syncope Psych Denies change in libido Endo Denies change in libido Physical Exam Const General: cooperative, healthy appearing, comfortable and no acute distress Orientation/consciousness: patient oriented x3 HEENT Face and sinus: Yes normal facial exam Mouth: moist mucous membranes Neck Neck: Yes normal visual inspection, Yes full ROM and Yes trachea midline Chest Chest palpation & inspection: normal inspection of the chest Resp Effort & Inspection: normal respiratory effort, able to speak in complete sentences and no respiratory distress GI Inspection: Yes normal to inspection Back/Spine/Pelvis Cervical Spine: normal cervical lordosis Thoracic/Lumbar Spine: thoracic and lumbar spine normal to inspection Skin General skin exam: no rashes or lesions noted Neuro General: patient oriented x3, gait normal, tone normal and moves all extremities Extrem General: Yes normal to inspection and Yes capillary refill normal Assessment & Plan Assessment & Plan (1) Prostate cancer: Code(s): C61 - Malignant neoplasm of prostate Category: Medical (2) Erectile dysfunction: Code(s): N52.9 - Male erectile dysfunction, unspecified Category: Medical Plan Patient prostate cancer care will be assumed by other members of his healthcare team Should he decide that he would like to move ahead with standard prostate cancer management we are available to him Patient Instructions: This note is constructed using voice recognition software. While every effort has been made to ensure accuracy line out man errors may have been included. Imaging studies, laboratory and physical exam results were discussed and reviewed in detail. No major barriers to patient understanding were identified. An opportunity to ask questions regarding the treatment plan was provided. All questions were answered. The patient expressed understanding and agreement with the above treatment plan. The patient is aware they should contact our office by phone for worsening of their current condition or the appearance of new urologic symptoms. Compliance is encouraged with any medications and followup testing that is ordered. It is a privilege to participate in the urologic care of your patient. If you have any questions or concerns regarding treatment for the above conditions, or other urologic issues, please do not hesitate to contact me. The office telephone contact is [phone]. Sincerely, Dr Pedro Buckley MD, [facility] - Urology Compassionate Specialist Care for the Genitourinary System Coding Level of Care Code Est Pt Level 4 (14577) Complex EM visit Add On G2211 Diagnoses Prostate cancer C61 Erectile dysfunction N52.9
--- OUTSIDE RECORDS SUMMARY | 2024-12-26 13:20 | XMS_ITS | Encounter Summary ---
Author Organization [employer] Address [address] [place] [address] Care Team Providers Care Claim Taker Name Role Phone Es Bolton MD Primary Care Provider [phone] Reason for Visit * Reason Onset Date Comments Lab Orders 12/22/2024 Encounter Details Date Type Department Care Team ([facility] st Contact Info) Description 12/22/2024 Telephone [facility] [address] [place] [address] Es Bolton MD [address] [place] [address] Lab Orders Social History Tobacco Use Types Packs/Day Years [...] encounter Miscellaneous Notes * Telephone Encounter - Christine Ellis RN - 12/24/2024 3:05 PM EDT Tc from pt stating that he got blood drawn and he would like for the results to be faxed over to [facility]. Pt states that it has been two times already. If any questions contact pt at [phone] Correct Fax would be [phone] TC placed to [facility] endocrinology office this is the correct number and are requesting labs, labs faxed * Telephone Encounter - Kevin Ryan - 12/23/2024 11:05 AM EDT Tc from pt stating that he got blood drawn and he would like for the results to be faxed over to [facility]. Pt states that it has been two times already. If any questions contact pt at [phone] Correct Fax would be [phone] * Telephone Encounter - Nancy Gayle RN - 12/22/2024 2:37 PM EDT Patient walk-in to request latest lab results be faxed to [facility]. [phone] (fax number) documented in this encounter Plan of Treatment Not on file documented as of this encounter Visit Diagnoses Not on filedocumented in this encounter Additional Health Concerns Assessment Noted Time PHQ-9 Depression Total Score: 4 08/28/20 24 10:12 AM EST documented as of this encounter Care Teams Claim Taker Relationship Specialty Start Date End Date Es Bolton MD [address] [place] [phone] PCP - General Family Medicine 06/06/17 documented as of this encounter
--- OUTSIDE RECORDS SUMMARY | 2024-12-26 13:20 | XMS_ITS | Encounter Summary ---
Author Organization [employer] Address [address] [facility] [address] [facility] [address] 7t [place] [address] Care Team Providers Care Recreation Leader Name Role Phone Es Bolton MD Primary Care Provider [phone] Reason for Visit * Reason Onset Date Comments Referral 12/04/2024 Encounter Details Date Type Department Care Team ([facility] st Contact Info) Description 12/04/2024 Telephone [facility] MEDICINE [address] [place] [address] Es Bolton MD [address] [place] [address] Referral Social History Tobacco Use Types Packs/Day Years [...] encounter Miscellaneous Notes * Telephone Encounter - Es Bolton MD - 12/05/2024 11:40 AM EDT What other information other than low testosterone labs do they need * Telephone Encounter - Ninoska Iglesias - 12/04/2024 10:59 AM EDT Tc from pt stating he went to the Endocrinology at [address] [place] [phone] and they states has no received referral. documented in this encounter Plan of Treatment Not on file documented as of this encounter Visit Diagnoses Diagnosis Erectile dysfunction, unspecified erectile dysfunction type documented in this encounter Additional Health Concerns Assessment Noted Time PHQ-9 Depression Total Score: 4 08/28/20 24 10:12 AM EST documented as of this encounter Care Teams Recreation Leader Relationship Specialty Start Date End Date Es Bolton MD [address] [place] [address] PCP - General Family Medicine 06/06/17 documented as of this encounter
--- OUTSIDE RECORDS SUMMARY | 2024-12-26 13:20 | XMS_ITS | Encounter Summary ---
Author Organization [employer] Address 75 [facility] 7t [place] [address] Care Team Providers Care Flow Specialist Name Role Phone sE Bolton MD Primary Care Provider [phone] Reason for Visit * Reason Onset Date Comments Results 12/25/2024 Encounter Details Date Type Department Care Team ([facility] st Contact Info) Description 12/25/2024 Telephone [facility] MED & PEDS [address] [place] [address] Es Bolton MD [address] [place] [address] Results Social History Tobacco Use Types Packs/Day Years [...] encounter Miscellaneous Notes * Telephone Encounter - Tracie Sharma RN - 12/25/2024 3:00 PM EDT TC from pt kassi. certified court interpreter obtained and pt daughter called back. RN explained that testosterone levels were normal for her father. Pt daughter Nyasia verbalized understanding. documented in this encounter Plan of Treatment Not on file documented as of this encounter Visit Diagnoses Not on filedocumented in this encounter Additional Health Concerns Assessment Noted Time PHQ-9 Depression Total Score: 4 08/28/20 24 10:12 AM EST documented as of this encounter Care Teams Flow Specialist Relationship Specialty Start Date End Date Es Bolton MD [address] [place] [address] PCP - General Family Medicine 06/06/17 documented as of this encounter
--- OUTSIDE RECORDS SUMMARY | 2024-12-26 13:20 | XMS_ITS | Clinical Summary ---
Author Organization [employer] Address 75 [facility] 7t [place] [address] Care Team Providers Care Manager Loss Prevention Name Role Phone Es Bolton MD Primary Care Provider [phone] Allergies No known active allergies Medications bicalutamide [...] 1 PUFF BY MOUTH TWICE A DAY 022 Active Advair Diskus 250-50 MCG/ACT aerosol powder TAKE 1 PUFF BY ORAL ROUTE 2 TIMES EVERY DAY 022 Active loratadine (Claritin) 10 MG tablet Take 1 tablet by mouth at bed time. 018 Active tadalafil (Cialis) 5 MG tablet TAKE ONE TABLET BY MOUTH EVERY DAY NEEDED FOR SEXUAL ACTIVITY 022 Active albuterol (ProAir HFA) 108 (90 Base) MCG/ACT inhalerIndicati ons:Moderate persistent asthma without complication Inhale 2 puffs every 4 (four) hours if needed for wheezing. 18 g 11 023 Active albuterol (2.5 MG/3ML) 0.083% nebulizer solution Take 3 mL (2.5 mg) by nebulization every 6 (six) hours if needed for wheezing. 75 mL 11 023 Active montelukast (Singulair) 10 MG tablet TAKE 1 TABLET BY MOUTH EVERY DAY IN THE MORNING 90 tablet 2 023 Active cetirizine (ZyrTEC) 10 MG tablet TAKE 1 TABLET BY MOUTH EVERY MORNING 90 tablet 2 024 Active omeprazole (PriLOSEC) [address] capsule Take 1 capsule (20 mg) by mouth before breakfast. Do not crush or chew.TAKE 1 CAPSULE BY MOUTH EVERY DAY BEFORE A MEAL 90 capsule 3 024 Active hydroCHLOROthia zide (HYDRODiuril) 25 MG tabletIndicatio ns:Benign essential hypertension Take 1 tablet (25 mg) by mouth Once per day. 90 tablet 3 024 2024 Active azithromycin (Zithromax Z-Uday) 250 MG tabletIndicatio ns:COPD with acute exacerbation (CMS/HCC) Take 2 tablets once on day 1, then 1 tablet once a day for 4 days. 6 tablet 025 Active tadalafil (Cialis) 5 MG tabletIndicatio ns:Erectile dysfunction, unspecified erectile dysfunction type Take 1 tablet (5 mg) by mouth Once per day. 30 tablet 025 2024 Active tadalafil (Cialis) 5 MG tabletIndicatio ns:Erectile dysfunction, unspecified erectile dysfunction type Take 1 tablet (5 mg) by mouth Once per day. 10 tablet 025 2024 Discontinued(R eorder (will not trigger notification to Pharmacy)) Active Problems Problem Noted Date Diagnosed Date [...] Encounters Date Type Department Care Team Description 12/25/2024 Telephone [facility] MED & PEDS [address] [place] [address] Es Bolton MD Results 12/25/2024 Telephone [facility] MED & PEDS [address] [place] [address] Es Bolton MD Results 12/22/2024 Telephone [facility] MED & PEDS [address] [place] [address] Es Bolton MD Lab Orders 12/12/2024 Orders Only [facility] MED & PEDS [address] [place] [address] Es Bolton MD Erectile dysfunction, unspecified erectile dysfunction type 12/11/2024 Telephone [facility] MED & PEDS [address] [place] [address] Es Bolton MD 12/10/[address] [address] Es Bolton MD Lab Orders 12/10/2024 Orders Only [facility] MED & PEDS [address] [place] [address] Es Bolton MD Erectile dysfunction, unspecified erectile dysfunction type (Primary Dx) 12/09/2024 Telephone [facility] MED & PEDS [address] [place] [address] Es Bolton MD Walk-In 12/08/2024 Telephone [facility] MED & PEDS [address] [place] [address] Es Bolton MD faxed lab to [facility] 12/04/2024 9:30 AM EDT Telemedicine [facility] MED & PEDS [address] [place] [address] Es Bolton MD Low testosterone (Primary Dx) 12/04/[address] [address] Es Bolton MD Referral 12/04/2024 Telephone [facility] MED & PEDS [address] [place] [address] Es Bolton MD Med Refill 12/04/2024 Travel 11/24/2024 Refill [facility] MED & PEDS [address] [place] [address] Es Bolton MD Erectile dysfunction, unspecified erectile dysfunction type 11/21/2024 Telephone [facility] MED & PEDS [address] [place] [address] Es Bolton MD Prior Authorization 11/12/2024 Orders Only [facility] MED & PEDS [address] [place] [address] Es Bolton MD Erectile dysfunction, unspecified erectile dysfunction type (Primary Dx) 11/06/[address] [address] Es Bolton MD Results 11/06/2024 Orders Only [facility] MED & PEDS [address] [place] [address] Es Bolton MD 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) 10/30/2024 9:30 AM EST Office Visit [facility] MED & PEDS [address] [place] [address] Es Bolton MD Erectile dysfunction, unspecified erectile dysfunction type (Primary Dx) 10/30/2024 Travel 10/20/2024 Orders Only [facility] [address] [place] [address] Marilyn Farr MD Pulse irregularity (Primary Dx) 10/16/2024 2:00 PM EST Office Visit [facility] MED & PEDS [address] [place] [address] Marilyn Farr MD COPD with acute exacerbation (CMS/HCC) (Primary Dx); Viral conjunctivitis of both eyes; Pulse irregularity 10/16/2024 Travel 10/16/2024 Telephone [facility] MED & PEDS [address] [place] [address] Nancy Gayle, FELICIANO Walk-In 10/16/2024 Telephone [facility] MED & PEDS [address] [place] [address] Es Bolton MD Walk-In from Last 3 Months Immunizations Name Administration [...] 10/30/2024 9:13 AM EST Plan of Treatment Health Maintenance Due Date Last Done Comments Hepatitis C Screening 1963 Zoster Vaccines (1 of 2) 1996 RSV Patients and Patients Aged 60 years or older (1 - 1-dose 75+ series) 2021 Alcohol/Substance Use Screening 08/28/2025 08/28/2024 Depression Screening 08/28/2025 08/28/2024, 08/28/20 SDOH Screening 08/28/2025 08/28/2024 Tobacco Screening 10/30/2025 10/30/2024 DTaP/Tdap/Td Vaccines (3 - Td or Tdap) [...] Procedure Name Priority Date/Time Associated Diagnosis Comments TESTOSTERONE, FREE (DIALYSIS) AND TOTAL,MS Routine 12/11/2024 2:25 PM EDT Erectile dysfunction, unspecified erectile dysfunction type TESTOSTERONE, TOTAL, MALES (ADULT), IA Routine 12/11/2024 2:25 PM EDT Erectile dysfunction, unspecified erectile dysfunction type TESTOSTERONE, TOTAL, MALES (ADULT), IA Routine 10/30/2024 9:32 AM EST Erectile dysfunction, unspecified erectile dysfunction type ECG 12-LEAD Routine 10/20/2024 1:03 PM EST Pulse irregularity POCT RAPID STREP A Routine 10/16/2024 2: 34 PM EST Viral conjunctivitis of both eyes POCT RAPID COVID ANTIGEN Routine 10/16/2024 2:33 PM EST Viral conjunctivitis of both eyes SARS COV2/INFLUENZA A/B AND RSV RNA QL NAAT Routine 10/16/2024 2:33 PM EST Viral conjunctivitis of both eyes AMB REFERRAL TO ENDOCRINOLOGY STAT 10/07/2024 Low testosterone in male LIPID PANEL, STANDARD Routine 09/02/2024 8:56 AM EST Benign essential hypertension from Last 3 Months or Most Recently Relevant to Health Maintenance Results * Testosterone, Free (Dialysis) And Total, MS (12/11/2024 2:25 PM EDT) Testosterone, Total 294 250 - 1100 ng/dL [facility] Comment:Men with clinically significant hypogonadal symptoms and testosterone valuesrepeatedly in the range of the 200-300 ng/dL or less, may benefit fromtestosterone treatment after adequate risk and benefits counseling.For additional information, please refer [email or web address]://[email or web address]/faq/[email or web address](This link is being provided for informational/educational purposes only.)(Note)This test was developed and its analytical performancecharacteristics have been determined by [employer]. It hasnot been cleared or approved by the FDA. This assay hasbeen validated pursuant to the CLIA regulations and isused for clinical purposes. Testosterone, Free 32.3 30.0 - 135.0 pg/mL [facility] Comment:(Note)This test was developed and its analytical performancecharacteristics have been determined by [employer]. It hasnot been cleared or approved by the FDA. This assay hasbeen validated pursuant to the CLIA regulations and isused for clinical purposes.MDFmed [email or web address] [place] [address],[address] [place] [address] [phone] James L. Frame, MD, PhDTHIS TEST WAS PERFORMED AT:[id number] [place] [address] [place] [phone] JANE MD,PHD Blood Venous blood specimen / Unknown 12/11/2024 2:25 PM EDT 12/12/2024 10:22 AM EDT Es Bolton MD LAB BLOOD ORDERABLES Final Resul t [facility] [address] [place] [phone] * Testosterone, Total, males (Adult), IA (12/11/2024 2:25 PM EDT) Only the most recent of2 resultswithin the time period is included. Testosterone, Total TNP [facility] Blood Venous blood specimen / Unknown 12/11/2024 2:25 PM EDT 12/12/2024 10:22 AM EDT Es Bolton MD LAB BLOOD ORDERABLES Final Resul t [facility] [address] [place] [address] [phone] * ECG 12 lead (10/20/2024 1:03 PM EST) Marilyn Blas MD - 10/20/2024 1:03 PM EST Sinus arrhythmia at 76 bpm Marilyn Farr MD ECG ORDERABLES Edited Result - Final * POCT Rapid Strep A OSOM (10/16/2024 2:34 PM EST) [facility] Rapid Strep A Screen Negative Negative, None Detected QC Media Lot # [id number] Lot# Expiration Date 2,025 Swab 10/16/2024 2:34 PM EST Marilyn Farr MD POINT OF CARE TEST ENTER/EDIT ORDERABLES Final Result * POCT Rapid Covid-19 BinaxNOW (10/16/2024 2:33 PM EST) [facility] Rapid COVID Ag Negative QC Media Lot # [id number] Lot# Expiration Date [id number] Swab 10/16/2024 2:33 PM EST Marilyn Farr MD POINT OF CARE TEST ENTER/EDIT ORDERABLES Final Result * SARS-CoV-2 RNA, Influenza A/B, and RSV RNA, Ql NAAT (10/16/2024 2:33 PM EST) [facility] Influenza A PCR NEGATIVE Negative [facility] Influenza B PCR NEGATIVE Negative [facility] Resp Syncy Virus RNA Qual PCR NEGATIVE Negative [facility] SARS COV2 PCR NEGATIVE Negative [facility] Comment:All test results mus t [...] use by authorized laboratories.Testing performed on the [employer] GeneXpert utilizingreal-time RT-PCR.All SARS CoV2 and positive influenza A/B results arereported to [facility]. Swab Nasopharyngeal structure / Unknown 10/16/2024 2:33 PM EST 10/16/2024 5:49 PM EST Marilyn Farr MD LAB MICROBIOLOGY - GENERAL OR DERABLES Final Result [facility] [address] [place] [phone] * Referral to Endocrinology (10/07/2024) Es Bolton MD OUTPATIENT REFERRAL ORDERABLES F inal Result * (ABNORMAL) Lipid Panel, Standard (09/02/2024 8:56 AM EST) Triglycerides 155(H) <150 mg/dL [facility] Comment:Desirable Triglyceri de: less than 150 mg/dLBorderline High Triglyceride 150-199 mg/dLHigh Triglyceride: 200-499 mg/dLVery High Triglyceride: greater than or equal to 5OO mg/dL Cholesterol 203(H) <200 mg/dL [facility] Comment:Desirable Cholestero l: less than 200 mg/dLBorderline High Cholesterol: 200-239 mg/dLHigh Cholesterol: greater than 239 mg/dL LDL Cholesterol Calculated 128(H) <100 mg/dL [facility] Comment:Desirable LDL: less than 100 mg/dLNear Optimal/Above Optimal LDL: 110- 129 mg/dLBorderline High LDL: 130-159 mg/dLHigh LDL: 160-189 mg/dLVery High LDL: greater than or equal to 190 mg/dL HDL Cholesterol 44 >40 mg/dL [facility] Comment:Desirable HDL: great er than 40 mg/dL Note: This HDL assay may give artificially low results in patients with liver disease. Blood Venous blood specimen / Unknown 09/02/2024 8:56 AM EST 09/02/2024 2:12 PM EST Es Bolton MD LAB BLOOD ORDERABLES Final Resul t [facility] [address] [place] [address] [phone] from Last 3 Months or Most Recently Relevant to Health Maintenance Insurance [address] [place], [place] [address] [address] [place] [id number] [address] [place] [address] Care Teams Manager Loss Prevention Relationship Specialty Start Date End Date Es Bolton MD [address] [place] [address] PCP - General Family Medicine 06/06/17
--- OUTSIDE RECORDS SUMMARY | 2024-12-26 13:20 | XMS_ITS | Encounter Summary ---
Author Organization [employer] Address [address] [facility] 7t [place] [address] Care Team Providers Care Distribution Agent Name Role Phone Es Bolton MD Primary Care Provider [phone] Reason for Visit * Reason Onset Date Comments Results 12/25/2024 Encounter Details Date Type Department Care Team ([facility] st Contact Info) Description 12/25/2024 Telephone [facility] MED & PEDS [address] [place] [address] Es Bolton MD [address] [place] [address] Results Social History Tobacco Use Types Packs/Day [...] Encounter - Tracie Sharma RN - 12/25/2024 2:51 PM EDT TC to pt and daughter. dietary aide teacher used. No answer. Voicemail left with daughter, unable toleave voicemail with pt due to full mailbox. documented in this encounter Plan of Treatment Not on file documented as of this encounter Visit Diagnoses Not on filedocumented in this encounter Additional Health Concerns Assessment Noted Time PHQ-9 Depression Total Score: 4 08/28/20 24 10:12 AM EST documented as of this encounter Care Teams Distribution Agent Relationship Specialty Start Date End Date Es Bolton MD [address] [place] [address] PCP - General Family Medicine 06/06/17 documented as of this encounter
--- OUTSIDE RECORDS SUMMARY | 2024-12-26 13:20 | XMS_ITS | Clinical Summary ---
Author Organization [facility] it[facility] Address [address] [place] [address] Care Team Providers Care Commercial Agent Name Role Phone Unavailable Primary Care Provider Unavailabl e Social History Tobacco Use Types Packs/Day Years Used Date Smoking Tobacco: Never Assessed Sex and Gender Information Value Date Recorded Sex Assigned at Not on file Legal Sex Male 2:11 AM EST Gender Identity Not on file Sexual Orientation Not on file Plan of Treatment Health Maintenance Due Date Last Done Comments DTaP,Tdap,and Td Vaccines (1 - Tdap) 1965 Pneumococcal Vaccine: 50+ Ye ars (1 of 1 - PCV) 1996 Zoster Vaccines (1 of 2) 1996 RSV Immunization Adult Patie nts (1 - 1-dose 75+ series) 2021 Cholesterol [...] patient's age to complete this topic Meningococcal B Vacine Aged Out No lo nger eligible based on patient's age to complete this topic RSV Immunization Patients Un anais 20 months Aged Out No longer eligible b ased on patient's age to complete this topic Varicella Vaccines Aged Out No longer eligible based on patient's age to complete this topic
== END 2024-12-26 12:27 | disposition home or self-care (01) ==
LOC: HO.HUSH 11:24
PROVIDERS: PCP Student in an Organized Health Care Education/Training Program; Visit Provider Urology
DX: C61 Malignant neoplasm of prostate (principal); N52.9 Male erectile dysfunction, unspecified
CPT/HCPCS: 99214; G2211

== ENCOUNTER → 2024-12-26 11:23 | Outpatient (BNVA) | payer OTHER, SELFPAY | PROVIDERS: PCP Student in an Organized Health Care Education/Training Program; Visit Provider Urology | DX: C61 Malignant neoplasm of prostate (principal); N52.9 Male erectile dysfunction, unspecified | CPT/HCPCS: 99212 ==

== ENCOUNTER 2025-07-01 11:13 | Outpatient (REF) | payer OTHER, SELFPAY ==
[2025-07-01 14:24] LABS: MANUAL DIFF FLAG NO
[2025-07-01 14:32] LABS: Hematocrit 36.6 % (42.0-52.0); Hemoglobin 11.1 g/dl (14.0-18.0); Imm Gran Abs Auto 0.01 X10*3/uL (0.00-0.03); Imm Gran Pct Auto 0.2 % (0.0-0.4); Lymphocytes Absolute Auto 1.8 X10*3/uL (1.2-4.9); Mean Corpuscular HGB Conc 30.3 g/dl (31.0-36.0); Mean Corpuscular Hemoglobin 25.2 pg (27.0-33.0); Mean Corpuscular Volume 83.2 fL (80.0-98.0); NRBC Abs Auto 0.000 X10*3/uL (0.0-0.012); NRBC Pct Auto 0.0 /100WBC (0.0-0.2); Platelet Count 213 X10*3/uL (160-400); Red Blood Count 4.40 X10*6/uL (4.60-5.80); White Blood Count 5.6 X10*3/uL (4.8-10.8)
[2025-07-01 15:06] LABS: Ferritin 16 ng/mL (20-250)
== END 2025-07-01 11:14 | disposition home or self-care (01) ==
LOC: HO.CHCLDS 11:13
PROVIDERS: Visit Provider Student in an Organized Health Care Education/Training Program
DX: D50.9 Iron deficiency anemia, unspecified (principal)
CPT/HCPCS: 36415; 82728; 85025

== ENCOUNTER 2025-08-27 10:30 | Outpatient (REF) | payer OTHER, SELFPAY ==
--- OUTSIDE RECORDS SUMMARY | 2025-08-27 12:58 | XMS_ITS | Encounter Summary ---
Author Organization [employer] Address 75 [facility] 7t [place] [address] Care Team Providers Care Bolt Sorter Name Role Phone Es Bolton MD Primary Care Provider [phone] Emeka Mckeon CNP Primary Care Provider [phone] Reason for Visit * Reason Comments Med Change Request Encounter Details Date Type Department Care Team ([facility] st Contact Info) Description 05/05/2025 Refill [facility] MED & PEDS [address] [place], [place] [id number] Es Bolton MD [address] [place] [address] Social History Tobacco Use Types Packs/Day Years [...] Access Answer Date Recorded Internet Access Q1 Yes 04/03/2025 Internet Access Q2 I do not want or need it 03/24 Sex and Gender Information Value Date Recorded Sex Assigned at Male 07/24/2022 10:32 AM EDT Legal Sex Male 10:32 AM EDT Gender Identity Male 07/24/2022 10:32 AM EDT Sexual Orientation Choose not to disclose 2021 10:32 AM EDT documented as of this encounter Plan of Treatment Not on file documented as of this encounter Visit Diagnoses Not on filedocumented in this encounter Additional Health Concerns Assessment Noted Time PHQ-9 Depression Total Score: 4 08/28/20 24 10:12 AM EST documented as of this encounter Care Teams Bolt Sorter Relationship Specialty Start Date End Date Es Bolton MD [address] [place] [address] PCP - General Family Medicine 06/06/17 07/08/25 Emeka Mckeon CNP [address] [place] [address] PCP - General Family Medicine 07/09/25 documented as of this encounter
--- OUTSIDE RECORDS SUMMARY | 2025-08-27 12:58 | XMS_ITS | Encounter Summary ---
Author Organization [employer] Address [address] [facility] [address] 7[address] [place] [address] Care Team Providers Care Quality Assurance Director Name Role Phone Es Bolton MD Primary Care Provider [phone] Emeka Mckeon CNP Primary Care Provider [phone] Encounter Details Date Type Department Care Team ([facility] st Contact Info) Description 07/02/2025 Orders Only [facility] MED & PEDS [address] [place], [place] [phone] Es Bolton MD [address] [place] [address] Social History Tobacco Use Types Packs/Day Years [...] documented as of this encounter Care Teams Quality Assurance Director Relationship Specialty Start Date End Date Es Bolton MD [address] [place] [address] PCP - General Family Medicine 06/06/17 07/08/25 Emeka Mckeon CNP [address] [place] [address] PCP - General Family Medicine 07/09/25 documented as of this encounter
--- OUTSIDE RECORDS SUMMARY | 2025-08-27 12:58 | XMS_ITS | Clinical Summary ---
Author Organization [facility] Address [address] [place] [address] Phone Care Team Providers Care Massage Coordinator Name Role Phone Physician, No Pcp Primary Care Provider Unavaila ble Allergies No known active allergies Medications No known medications Active Problems No known active problems Medical History Medical History Date Comments Asthma Hypertension Social History Tobacco Use Types Packs/Day Years Used Date Smoking Tobacco: Never Smokeless Tobacco: Never Tobacco Cessation:Counseling Given: Not Answered Sex and Gender Information Value Date Recorded Sex Assigned at Not on file Legal Sex Male 2:11 AM EST Gender Identity Not on file Sexual Orientation Not on file Obstetrics History Last Filed Vital Signs Vital Sign Reading Time Taken Comments Blood Pressure 121/76 03/08/2025 11:59 AM EDT Pulse 65 03/08/2025 11:59 AM EDT Temperature 37 C (98.6 F) 03/08/2025 11:59 AM EDT Respiratory Rate 18 03/08/2025 11:59 AM EDT Oxygen Saturation 95% 03/08/2025 11:59 AM EDT Inhaled Oxygen Concentration - - Weight 74.8 kg (165 lb) 03/08/2025 8:59 AM EDT Height 172.7 cm (5' 8 ) 03/08/2025 8:59 AM EDT Body Mass Index 25.09 03/08/2025 8:59 AM EDT Plan of Treatment Health Maintenance Due Date Last Done Comments Zoster Vaccines (1 of 2) 1996 RSV Immunization Adult Patients (1 - 1-dose 75+ series) 2021 Falls Risk Assessment 08/27/2022 Hepatitis C Screening 08/27/2022 Medicare Annual Wellness Visit 08/27/2022 Social Influencers of Health Screening 08/27/2022 Depression Screening 09/24/2024 COVID-19 Vaccine ( season) 2025 08/28/2024, 10/30/2020, 10/09/2020 Influenza Vaccine (#1) 2025 , 10/17/2022, 06/18/2020, Additional history exists Hypertension/CHF/CAD Annual BMP Blood Test 03/08/2026 03/08/2025 DTaP,Tdap,and Td Vaccines (4 - Td or Tdap) 04/04/2029 04/04/2019, 03/13/2009, 03/13/2009 Cholesterol Screening (Lipid Panel) 09/02/2029 09/02/2024 Colorectal Cancer Screening: Colonoscopy Discontinued 11/29/2016, 05/04/2011 Pneumococcal Vaccine: 50+ Years Completed 11/28/2018, 11/17/2016 HIB Vaccines Aged Out No longer eligi [...] age to complete this topic Meningococcal B Vaccine Aged Out No l onger eligible based on patient's age to complete this topic RSV Immunization Patients Under 20 months Aged Out No longer eligible based on patient's age to complete this topic Varicella Vaccines Aged Out No longer eligible based on patient's age to complete this topic Procedures Procedure Name Priority Date/Time Associated Diagnosis Comments BASIC METABOLIC PANEL STAT 03/08/2025 9:10 AM EDT EXTERNAL COLONOSCOPY REPORT Routine 11/29/2016 1:12 PM EST from Last 3 Months or Most Recently Relevant to Health Maintenance Results * (ABNORMAL) Basic metabolic panel (03/08/2025 9:10 AM EDT) Sodium 131(L) 133 - 145 mmol/L LAB CHEMISTRY METHOD 03/08/2025 10:47 AM EDT [facility] Potassium 3.7 3.5 - 5.5 mmol/L LAB CHEMISTRY METHOD 03/08/2025 10:[address] [facility] Chloride 97 96 - 110 mmol/L LAB CHEMISTRY METHOD 03/08/2025 10:[address] [facility] CO2 30 21 - 32 mmol/L LAB CHEMISTRY METHOD 03/08/2025 10:[address] [facility] Anion Gap 4 3 - 11 LAB CHEMISTRY METHOD 03/08/2025 10:[address] [facility] Glucose 135(H) 70 - 100 mg/dL LAB CHEMISTRY METHOD 03/08/2025 10:[address] [facility] BUN 13 5 - 25 mg/dL LAB CHEMISTRY METHOD 03/08/2025 10:[address] [facility] Creatinine 1.48(H) 0.70 - 1.30 mg/dL LAB CHEMISTRY METHOD 03/08/2025 10:[address] [facility] eGFR 48(L) >=60 mL/min/1. 73m2 LAB CHEMISTRY METHOD 03/08/2025 10:[address] [facility] Comment:Calculation based on the Chronic Kidney Disease Epidemiology Collaboration (CKD-EPI) equation refit without adjustment for race. BUN/Creatinine Ratio 8.8 LAB CHEMISTRY METHOD 03/08/2025 10:[address] [facility] Calcium 9.2 8.5 - 10.5 mg/dL LAB CHEMISTRY METHOD 03/08/2025 10:[address] [facility] Blood Venous blood specimen / Unknown Venipuncture / Unknown 03/08/2025 9:10 AM EDT 03/08/2025 10:26 AM EDT us Glenn Sepulveda MD LAB BLOOD ORDERABLES Final Resu lt [facility] [address] [place] [address], * External Colonoscopy Report (11/29/2016 1:12 PM EST) Anatomical Region Laterality Modality Endoscopy us Historical Provider GI~PROCEDURE ORDERABLES F inal Result from Last 3 Months or Most Recently Relevant to Health Maintenance Insurance [place] [facility] [employer] [facility] [employer] Care Teams Massage Coordinator Relationship Specialty Start Date End Date Physician, No Pcp PCP - General 03/08/25
--- OUTSIDE RECORDS SUMMARY | 2025-08-27 12:59 | XMS_ITS | Clinical Summary ---
Author Organization [facility] Address [address] [place] [address] Care Team Providers Care Mixer And Scaler Name Role Phone Emeka Mckeon ANIKA Primary Care Provider [phone] Allergies No known active allergies Medications bicalutamide [...] 1 PUFF BY MOUTH TWICE A DAY 2 Active loratadine (Claritin) 10 MG tablet Take 1 tablet by mouth at bed time. 8 Active montelukast (Singulair) 10 MG tablet TAKE 1 TABLET BY MOUTH EVERY DAY IN THE MORNING 90 tablet 2 3 Active cetirizine (ZyrTEC) 10 MG tablet TAKE 1 TABLET BY MOUTH EVERY MORNING 90 tablet 2 4 Active omeprazole (PriLOSEC) [address] capsule Take 1 capsule (20 mg) by mouth before breakfast. Do not crush or chew.TAKE 1 CAPSULE BY MOUTH EVERY DAY BEFORE A MEAL 90 capsule 3 4 Active hydroCHLOROthiaz chivo (HYDRODiuril) 25 MG tabletIndication s:Benign essential hypertension Take 1 tablet (25 mg) by mouth Once per day. 90 tablet 3 4 Active ferrous gluconate (Fergon) 324 (38 Fe) MG tablet Take 1 tablet (324 mg) by mouth with breakfast. 30 tablet 11 5 Active Advair Diskus 250-50 MCG/ACT aerosol powder Inhale 1 puff 2 times daily. 1 each 11 5 Active albuterol (2.5 MG/3ML) 0.083% nebulizer solutionIndicati ons:Moderate persistent asthma without complication Take 3 mL (2.5 mg) by nebulization every 6 (six) hours if needed for wheezing. 75 mL 11 5 026 Active albuterol (ProAir HFA) 108 (90 Base) MCG/ACT inhalerIndicatio ns:Moderate persistent asthma without complication INHALE 2 PUFFS BY MOUTH EVERY 4 HOURS NEEDED FOR WHEEZING 18 g 1 Active tadalafil (Cialis) 5 MG tabletIndication s:Erectile dysfunction, unspecified erectile dysfunction type TAKE 1 TABLET (5 MG) BY MOUTH ONCE PER DAY. 30 tablet 5 Active Active Problems Problem Noted Date Diagnosed Date Chest pain 07/02/2025 Elevated PSA 07/02/2025 Erectile dysfunction 07/02/2025 Prostate cancer ([facility]) 07/02/2025 Asthma 10/17/2022 Assessment & Plan (01/29/2023 9:27 [...] neoplasia 0 10/17/2022 Abnormal colonoscopy 10/17/2022 Overview (07/02/2025): Completed 11/29/2016, due in 2021 Completed 11/29/2016, due in 2021 Benign essential hypertension 06/06/2017 Gastroesophageal reflux disease without esophagi tis 06/06/2017 Encounters Date Type Department Care Team Description 08/27/2025 Refill [facility] [address] [place] [address] Emeka Mckeon CNP Erectile dysfunction, unspecified erectile dysfunction type 07/09/2025 11:00 AM EDT Office Visit [facility] [address] [place] [address] Es Bolton MD Iron deficiency anemia, unspecified iron deficiency anemia type (Primary Dx); Moderate persistent asthma without complication; Erectile dysfunction, unspecified erectile dysfunction type; Benign essential hypertension; Encounter for immunization; Encounter for vaccination 07/09/2025 Travel 07/08/2025 Telephone [facility] [address] [place] [address] Es Bolton MD Chart Prep 07/02/2025 Telephone [facility] [address] [place] [address] Es Bolton MD chart prep 07/02/2025 Results Follow-Up [facility] [address] [place] [address] Es Bolton MD CBC auto differential, Ferritin 07/02/2025 Orders Only [facility] [address] [place] [address] Es Bolton MD from Last 3 Months Immunizations Immunization Administration Dates Next Due DT (pediatric) 03/13/2009 Influenza High-dose Quadriva lent Preservative Free 06/18/2020 Influenza injectable quadriv alent preservative free 10/17/2022,11/17/2016 Influenza, High Dose Seasona l, Preservative Free 07/09/2025,08/28/2024,10/07/2019 Influenza, IIV3, injectable 11/17/2016 Pfizer Covid-19 Vaccine 12+ 07/09/2025, 4 Pneumococcal Conjugate PCV 13 11/17/2016 Pneumococcal Polysaccharide PPSV23 11/28/2018 TD (adult), 2 Lf tetanus tox oid, preservative free, adsorbed 04/04/2019 Tdap 03/13/2009 Social History Tobacco Use Types [...] Sign Reading Time Taken Comments Blood Pressure 171/85 07/09/2025 10:45 AM EDT Pulse 73 07/09/2025 10:45 AM EDT Temperature 36.3 C (97.3 F) 07/09/2025 10:45 AM EDT Respiratory Rate 18 07/09/2025 10:45 AM EDT Oxygen Saturation 97% 07/09/2025 10:45 AM EDT Inhaled Oxygen Concentration - - Weight 66.2 kg (146 lb) 07/09/2025 10:45 AM EDT Height 168.9 cm (5' 6.5 ) 07/09/2025 10:45 AM ED T Body Mass Index 23.21 07/09/2025 10:45 AM EDT Plan of Treatment Health Maintenance Due Date Last Done Comments Hepatitis C Screening 1963 Zoster Vaccines (1 of 2) 1996 RSV Patients and Patients Aged 60 years or older (1 - 1-dose 75+ series) 2021 Alcohol/Substance Use Screening 08/28/2025 08/28/2024 Depression Screening 08/28/2025 08/28/2024, 08/28/20 24 COVID-19 Vaccine ( season) 2026 07/09/2025, 08/28/2024, 10/30/2020, Additional history exists SDOH Screening 04/03/2026 04/03/2025 Tobacco Screening 07/09/2026 07/09/2025 DTaP/Tdap/Td Vaccines (4 - Td or Tdap) 04/04/2029 04/04/2019, 03/13/2009, 03/13/2009 Lipid Panel 09/02/2029 09/02/2024, 10/27/2021 Pneumococcal Vaccine: 50+ Years Completed 11/28/2018, 11/17/2016 Influenza Vaccine Completed 07/09/2025, , 10/17/2022, Additional history exists HIB Vaccines Aged Out [...] Procedure Name Priority Date/Time Associated Diagnosis Comments FERRITIN Routine 07/01/2025 11:17 AM EDT Iron deficiency anemia, unspecified iron deficiency anemia type CBC WITH AUTO DIFFERENTIAL Routine 07/01/2025 11:17 AM EDT Iron deficiency anemia, unspecified iron deficiency anemia type LIPID PANEL, STANDARD Routine 09/02/2024 8:56 AM EST Benign essential hypertension from Last 3 Months or Most Recently Relevant to Health Maintenance Results * (ABNORMAL) CBC auto differential (07/01/2025 11:17 AM EDT) White Blood Count 5.6 4.8 - 10.8 X10*3/uL [facility] Red Blood Count 4.40(L) 4.60 - 5.80 X10*6/uL [facility] Hemoglobin 11.1(L) 14.0 - 18.0 g/dl [facility] Hematocrit 36.6(L) 42.0 - 52.0 % [facility] Mean Corpuscular Volume 83.2 80.0 - 98.0 fL [facility] Mean Corpuscular Hemoglobin 25.2(L) 27.0 - 33.0 pg [facility] Mean Corpuscular HGB Conc 30.3(L) 31.0 - 36.0 g/dl [facility] Red Cell Distribution Width 17.1(H) 11.0 - 16.0 % [facility] Platelet Count 213 160 - 400 X10*3/uL [facility] Mean Platelet Volume 10.6 9.4 - 12.4 fL [facility] Neutrophils Percent Auto 54.3 45 - 73 % [facility] Imm Gran Pct Auto 0.2 0.0 - 0.4 % [facility] Lymphocytes Percent Auto 32.1 20 - 40 % [facility] Monocytes Percent Auto 10.2 2 - 11 % [facility] Eosinophils Percent Auto 2.7 0 - 4 % [facility] Basophils Percent Auto 0.5 0 - 2 % [facility] NRBC Pct Auto 0.0 0.0 - 0.2 /100WBC [facility] Neutrophils Absolute Auto 3.0 2.0 - 8.3 x10*3/uL [facility] Imm Gran Abs Auto 0.01 0.00 - 0.03 X10*3/uL [facility] Lymphocytes Absolute Auto 1.8 1.2 - 4.9 X10*3/uL [facility] Monocytes Absolute Auto 0.6 0.1 - 1.2 X10*3/uL [facility] Eosinophils Absolute Auto 0.2 0.0 - 0.4 X10*3/uL [facility] Basophils Absolute Auto 0.0 0.0 - 0.2 X10*3/uL [facility] NRBC Abs Auto 0.000 0.0 - 0.012 X10*3/uL [facility] Blood Venous blood specimen / Unknown 07/01/2025 11:17 AM EDT 07/01/2025 2:18 PM EDT Es Bolton MD LAB BLOOD ORDERABLES Final Resul t [facility] [address] [place] [phone] * (ABNORMAL) Ferritin (07/01/2025 11:17 AM EDT) Pathologist [facility] Ferritin 16(L) 20 - 250 ng/mL [facility] Blood Venous blood specimen / Unknown 07/01/2025 11:17 AM EDT 07/01/2025 2:18 PM EDT Es Bolton MD LAB BLOOD ORDERABLES Final Resul t Performing Organization Address City/[facility]/ZIP Co de Phone Number [facility] [address] [place] [address] [phone] * (ABNORMAL) Lipid Panel, Standard (09/02/2024 8:56 AM EST) Triglycerides 155(H) <150 mg/dL [facility] Comment:Desirable Triglyceri de: less than 150 mg/dLBorderline High Triglyceride 150-199 mg/dLHigh Triglyceride: 200-499 mg/dLVery High Triglyceride: greater than or equal to 5OO mg/dL Cholesterol 203(H) <200 mg/dL [facility] Comment:Desirable Cholestero l: less than 200 mg/dLBorderline High Cholesterol: 200-239 mg/dLHigh Cholesterol: greater than 239 mg/dL LDL Cholesterol Calculated 128(H) <100 mg/dL [facility] Comment:Desirable LDL: less than 100 mg/dLNear Optimal/Above Optimal LDL: 110- 129 mg/dLBorderline High LDL: 130-159 mg/dLHigh LDL: 160-189 mg/dLVery High LDL: greater than or equal to 190 mg/dL HDL Cholesterol 44 >40 mg/dL [facility] Comment:Desirable HDL: great er than 40 mg/dL Note: This HDL assay may give artificially low results in patients with liver disease. Blood Venous blood specimen / Unknown 09/02/2024 8:56 AM EST 09/02/2024 2:12 PM EST us Es Bolton MD LAB BLOOD ORDERABLES Final Resul t [facility] [address] [place] [phone] from Last 3 Months or Most Recently Relevant to Health Maintenance [place] [address] [address] Care Teams Mixer And Scaler Relationship Specialty Start Date End Date Emeka Mckeon CNP [address] [place], [place] [address] [place] [id number] PCP - General Family Medicine 07/09/25
--- OUTSIDE RECORDS SUMMARY | 2025-08-27 12:59 | XMS_ITS | Encounter Summary ---
Author Organization [facility] Address [address] [facility] [address] [place] [address] Care Team Providers Care Global Climate Change Analyst Name Role Phone Emeka Mckeon CNP Primary Care Provider [phone] Reason for Visit * Reason Onset Date Comments Med Refill 08/27/2025 Encounter Details Date Type Department Care Team ([facility] st Contact Info) Description 08/27/2025 Refill [facility] [address] [place] [address] Emeka Mckeon CNP [address] [place] [address] Erectile dysfunction, unspecified erectile dysfunction type Social History Tobacco Use Types Packs/Day Years [...] encounter Miscellaneous Notes * Telephone Encounter - Amalia Guzmán LPN - 08/27/2025 10:21 AM EST Last seen 07.09.25 * Telephone Encounter - Wendy Land - 08/27/2025 10:19 AM EST Pt requesting refill for TADALAFIL 5 MG documented in this encounter Plan of Treatment Not on file documented as of this encounter Visit Diagnoses Diagnosis Erectile dysfunction, unspecified erectile dysfunction type documented in this encounter Additional Health Concerns Assessment Noted Time PHQ-9 Depression Total Score: 4 08/28/20 24 10:12 AM EST documented as of this encounter Care Teams Global Climate Change Analyst Relationship Specialty Start Date End Date Emeka Mckeon CNP [address] [place] [phone] PCP - General Family Medicine 07/09/25 documented as of this encounter
--- OUTSIDE RECORDS SUMMARY | 2025-08-27 12:59 | XMS_ITS | Encounter Summary ---
Author Organization [facility] Address [address] [facility] [address] [place] [address] Care Team Providers Care Ribber Name Role Phone Es Bolton MD Primary Care Provider [phone] Emeka Mckeon CNP Primary Care Provider [phone] Reason for Visit * Reason Onset Date Comments Referral 12/04/2024 Encounter Details Date Type Department Care Team ([facility] st Contact Info) Description 12/04/2024 Telephone [facility] [address] [place] [address] Es Bolton MD [address] [place] [address] Referral Social History Tobacco Use Types Packs/Day [...] stating he went to the Endocrinology at [facility] [place] [address] and they states has no received referral. documented in this encounter Plan of Treatment Not on file documented as of this encounter Visit Diagnoses Diagnosis Erectile dysfunction, unspecified erectile dysfunction type documented in this encounter Additional Health Concerns Assessment Noted Time PHQ-9 Depression Total Score: 4 08/28/20 24 10:12 AM EST documented as of this encounter Care Teams Ribber Relationship Specialty Start Date End Date Es Bolton MD [address] [place] [phone] PCP - General Family Medicine 06/06/17 07/08/25 Emeka Mckeon CNP [address] [place] [phone] PCP - General Family Medicine 07/09/25 documented as of this encounter
[2025-08-27 13:54] LABS: MANUAL DIFF FLAG NO
[2025-08-27 14:02] LABS: Hematocrit 43.3 % (42.0-52.0); Hemoglobin 13.3 g/dl (14.0-18.0); Imm Gran Abs Auto 0.01 X10*3/uL (0.00-0.03); Imm Gran Pct Auto 0.2 % (0.0-0.4); Lymphocytes Absolute Auto 1.3 X10*3/uL (1.2-4.9); Mean Corpuscular HGB Conc 30.7 g/dl (31.0-36.0); Mean Corpuscular Hemoglobin 28.2 pg (27.0-33.0); Mean Corpuscular Volume 91.9 fL (80.0-98.0); NRBC Abs Auto 0.000 X10*3/uL (0.0-0.012); NRBC Pct Auto 0.0 /100WBC (0.0-0.2); Platelet Count 179 X10*3/uL (160-400); Red Blood Count 4.71 X10*6/uL (4.60-5.80); White Blood Count 5.0 X10*3/uL (4.8-10.8)
[2025-08-27 14:38] LABS: Alanine Aminotransferase 13 U/L (0-40); Albumin Level 4.1 g/dL (3.5-5.0); Alkaline Phosphatase 95 U/L (39-117); Anion Gap 10 (12-20); Aspartate Amino Transferase 31 U/L (5-37); Blood Urea Nitrogen 10 mg/dL (9-16); Calcium 8.9 mg/dL (8.4-10.2); Carbon Dioxide 27 mmol/L (22-29); Chloride 107 mmol/L (96-108); Cholesterol 169 mg/dL (<200); Estimated Glomerular Filt Rate 59; HDL Cholesterol 41 mg/dL (>40); Potassium 4.0 mmol/L (3.3-5.1); Sodium 140 mmol/L (135-145); Total Protein 7.1 g/dL (6.5-8.0); Triglycerides 102 mg/dL (<150)
== END 2025-08-27 10:31 | disposition home or self-care (01) ==
LOC: HO.CHCLDS 10:30
PROVIDERS: Visit Provider Student in an Organized Health Care Education/Training Program
DX: I10 Essential (primary) hypertension (principal); D50.9 Iron deficiency anemia, unspecified
CPT/HCPCS: 36415; 80048; 80061; 80076; 85025